=== PATIENT | male | born 1945 | race Caucasian/White ===

== ENCOUNTER 2019-07-05 09:14 | Outpatient (RCR) | payer MEDICARE, SELFPAY ==
[2019-07-05 09:23] VITALS: BMI 42.7
== END 2019-10-03 23:59 | disposition home or self-care (01) ==
LOC: ANHDMC 09:14
PROVIDERS: PCP Family Medicine; Visit Provider Family Medicine
DX: E11.65 Type 2 diabetes mellitus with hyperglycemia (principal); Z71.3 Dietary counseling and surveillance
CPT/HCPCS: 97802

== ENCOUNTER 2020-02-08 12:49 | Outpatient (CLI) | payer MEDICARE, SELFPAY ==
--- NOTE | 2020-02-08 16:49 | WPDSIXMINUTE ---
Six Minute Walk Six Minute Walk: DOS: 02/08/2020 REQUESTING: Dr. Calhoun REASON FOR TESTING: shortness of breath SIX MINUTE WALK This test was conducted per ATS guidelines. The patient wore a wrist oximeter however the signal was not easily displayed. The saturation and heart rate were recorded when the patient completed each lap. The initial saturation was 98% and the pulse was 69. No desaturation occurred with walking, pulse increased to 115. The distance walked was 1000 feet/304 meters completed without stopping to rest. IMPRESSION: No supplemental O2 indicated with exertion.
--- NOTE | 2020-02-08 17:10 | WPDPFTINT ---
PFT Interpretation PFT Interpretation: DOS: 02/08/2020 REQUESTING: Dr Calhoun REASON FOR TESTING: Shortness of breath PULMONARY FUNCTION TESTS The generator technician reported that the patient had good effort. Spirometry: FEV1 74%, mildly decreased, 2.04 L. FVC 69%. FEV1% is normal. No change with bronchodilator. Lung volumes: TLC 86%. RV 92%. Both values are normal. RV/TLC increased consistent with air trapping. Increased airway resistance. Diffusion: DLCO 72%mildly decreased. Flow volume loop: Decreased excursion of the inspiratory limb. IMPRESSION: Mild obstructive ventilatory impairment, mild air trapping, mild diffusion impairment without response to bronchodilator. Lack of response to bronchodilator should not preclude use if clinically indicated. Nicci Calhoun MD
== END 2020-02-08 12:50 | disposition home or self-care (01) ==
PROVIDERS: PCP Family Medicine; Visit Provider Internal Medicine Critical Care Medicine
DX: R06.02 Shortness of breath (principal); Z86.711 Personal history of pulmonary embolism; R94.2 Abnormal results of pulmonary function studies
CPT/HCPCS: 94060; 94618; 94726; 94729

== ENCOUNTER 2020-10-25 07:34 | Outpatient (CLI) | payer MEDICARE, SELFPAY ==
--- NOTE | ~2020-10-25 | NM_ITS ---
EXAMINATION: NM bone scan whole body DATE: 10/25/2020 13:32 INDICATION: Prostate cancer TECHNIQUE: 27.5 mCi Tc-99m HDP was administered intravenously. Delayed whole-body scintigrams were o btained. COMPARISON: CT abdomen and pelvis dated 10/25/2020 and chest dated 05/14/2019 FINDINGS: Likely degenerative joint centered uptake at the bilateral knees, feet and ankles. Symmetric mild inc reased uptake at the bilateral sternoclavicular articulations and anterior first ribs with associated costochondral calcifications on CT. Small focus of mildly increased uptake associated with prominent anterior endplate osteophytes at the right side of T12-L1. More subtle degenerative joint centered u ptake at the lower lumbar facet joints. No other foci of suspicious bone uptake to suggest metastatic disease. IMPRESSION: 1. No evident metastatic disease. Reviewed, dictated and finalized at location A.
--- NOTE | ~2020-10-25 | CT_ITS ---
EXAMINATION: CT abdomen pelvis w con EXAM DATE: 10/25/2020 08:34 INDICATION: Prostate cancer. TECHNIQUE: Spiral CT of the abdomen and pelvis was performed following intravenous injection of 100 m L Omnipaque 350. Axial, coronal and sagittal images of the abdomen and pelvis were reviewed. The do se-length product (DLP) for this examination was 1987.05 mGy-cm. The exposure was tailored according to patient size (auto mA exposure control), and iterative reconstruction (ASIR) was used as addition al dose reduction technique. There is no prior study for comparison. Correlation was made with CT pu lmonary scan 05/14/2019. FINDINGS: There are bilateral adrenal adenomas, largest on the right measuring 3.4 cm, not significan tly changed. There is left upper quadrant splenosis, the spleen itself is not identified and may hav e been surgically resected. There are laparotomy wires. Retroperitoneal and pelvic surgical clips. There is a right external iliac lymph node measuring 2.6 x 1.5 cm, the largest pelvic and retroperitoneal lymph node identified (see image 167). This is mildly enlarged, could be reactive but metastatic disease is also possible. Liver, pancreas are unremarkable. Gallbladder is unremarkable. No biliary obstruction. Homogeneous lesion in the midpole of the left kidney measuring 3 cm, could likely mildly cyst. There is no hydro nephrosis. The prostate is unremarkable. There is moderate size left-sided fat-containing inguinal h ernia. The bladder is unremarkable. There is mild to moderate scattered arteriosclerotic disease. Anterior left midline abdominal wall hernias including a large one containing nonobstructed transvers e colon, others containing fat. There are no findings to suggest appendicitis. The stomach and small bowel are unremarkable. There is expected amount of colonic stool. No free intraperitoneal gas. There is cardiomegaly and a moderate pericardial effusion, findings which were present on pulmonary CT 2018. No pleural effusions. Right lower lobe granuloma. No acute basilar airspace disease. Ther e are no osteoblastic or osteolytic lesions identified. IMPRESSION: 1. Single mildly enlarged right pelvic lymph node. Reactive versus metastatic disease. 2. Large supraumbilical hernias, one containing nonobstructed transverse colon. 3. Cardiomegaly and moderate pericardial effusion, chronic. 4. Adrenal adenomas. 5. Splenosis. 6. Surgical changes. Reviewed, dictated and finalized at location B. IMPRESSION: 1. Single mildly enlarged right pelvic lymph node. Reactive versus metastatic disease. 2. Large supraumbilical hernias, one containing nonobstructed transverse colon . 3. Cardiomegaly and moderate pericardial effusion, chronic. 4. Adrenal adenomas. 5. Splenosis. 6. Surgical changes.
[2020-10-25 13:02] LABS: Estimated Glomerular Filt Rate > 60
== END 2020-10-25 07:35 | disposition home or self-care (01) ==
PROVIDERS: PCP Family Medicine; Visit Provider Urology
DX: C61 Malignant neoplasm of prostate (principal); I51.7 Cardiomegaly; D35.00 Benign neoplasm of unspecified adrenal gland
CPT/HCPCS: 74177; 78306; A9561; Q9967

== ENCOUNTER 2020-12-11 08:21 | Outpatient (CLI) | payer MEDICARE, SELFPAY ==
--- NOTE | ~2020-12-11 | MR_ITS ---
EXAMINATION: MR pelvis wo/w con INDICATION: Prostate cancer TECHNIQUE: 3D Axial T2 Cube, Axial 2D FIESTA, Coronal SSFSE ARC, Axial and Coronal 2D FIESTA FatSat, Axial T2 FS, Axial SSFSE BH ARC, Axial 3D DualEcho BH, Axial SSFSE-IR David, Axial DWI b=600, pre and d ynamic postcontrast Axial LAVA ARC, WATER:POST Cor LAVA-FLEX COMPARISON: CT, 10/25/2020 CONTRAST: Multihance, 20 cc FINDINGS: Foci of T1 signal hyperintensity in the prostate on precontrast images likely reflect biops y change. There is an 8 mm area of cystic change in the left aspect of the prostate. No definite foca l prostate lesion is identified. There appears to be a spacer between the rectum and prostate. There is a stable, mildly enlarged right external iliac chain lymph node measuring 1.5 cm in short axis. Th ere are no dilated loops of bowel. No abnormal enhancement is present after contrast administration. There is a fat-containing left inguinal hernia. There is moderate lumbar spondylosis. IMPRESSION: 1. Right pelvic lymphadenopathy, reactive versus metastatic. Reviewed, dictated and finalized at location A.
[2020-12-11 09:12] LABS: Estimated Glomerular Filt Rate > 60
== END 2020-12-11 08:22 | disposition home or self-care (01) ==
PROVIDERS: PCP Family Medicine; Visit Provider Radiology Radiation Oncology
DX: C61 Malignant neoplasm of prostate (principal)
CPT/HCPCS: 72197; A9577

== ENCOUNTER 2022-01-28 11:12 | Outpatient (CLI) | payer MEDICARE, SELFPAY ==
[2022-01-28 19:29] LABS: Alanine Aminotransferase 11 U/L (6-50); Albumin Level 3.9 g/dL (3.5-5.1); Alkaline Phosphatase 64 U/L (38-126); Anion Gap 7 mmol/L (8-16); Aspartate Amino Transferase 26 U/L (17-59); Bilirubin,Total 0.7 mg/dL (0.2-1.3); Blood Urea Nitrogen 14 mg/dL (9-20); Calcium 9.3 mg/dL (8.4-10.2); Carbon Dioxide 30 mmol/L (22-30); Chloride 106 mmol/L (98-107); Estimated Glomerular Filt Rate > 60; Glucose 89 mg/dL (65-110); Potassium 4.4 mmol/L (3.4-5.0); Sodium 143 mmol/L (137-145)
== END 2022-01-28 11:13 | disposition home or self-care (01) ==
LOC: ANHGOSHLAB 11:13
PROVIDERS: PCP Family Medicine; Visit Provider Family Medicine
DX: E11.9 Type 2 diabetes mellitus without complications (principal); E55.9 Vitamin D deficiency, unspecified; I10 Essential (primary) hypertension
CPT/HCPCS: 36415; 80053; 82306; 83036

== ENCOUNTER → 2022-02-17 10:38 | Outpatient (CLI) | payer MEDICARE, SELFPAY ==
--- NOTE | ~2022-02-17 | DEXA_ITS ---
Bone Density Report Name: ETHAN CONNER Age: 76 Sex: Male Ethnicity: White Date of : 1945 Indication: screening for osteoporosis; height loss; cancer; Referring Provider: СЕРГЕЙ CALLEJAS Study: Bone densitometry was performed. Exam Date: February 17, 2022 Accession number: [id number] Bone Density: Region BMD T-score Z-score Classification AP Spine (L1, L2, L3) 1.200 1.2 2.3 Normal Femoral Neck (Left) 0.699 -1.7 -0.2 Osteopenia Total Hip (Left) 0.961 -0.5 0.5 Normal Femoral Neck (Right) 0.629 -2.2 -0.8 Osteopenia Total Hip (Right) 0.947 -0.6 0.4 Normal Total Hip Mean 0.954 -0.6 0.5 Normal World Health Organization criteria for BMD impression classify patients as: Normal (T-score at or above -1.0), Osteopenia (T-score between -1.0 and -2.5), or Osteoporosis (T-score at or below -2.5). 10-year Fracture Risk: FRAX not reported because: Treated for osteoporosis Clinical Information Provided by Patient: Is being treated for osteoporosis Has used the following medications: HRT (i.e. estrogen/hormone therapy), Vitamin D, Calcium Has the following medical conditions: Cancer, PROSTATE CANCER Patient maximum height was 70 No regular weight bearing exercise Drinks caffeinated beverages Impression: The patient has low bone mass, based on the Right Femoral Neck T-score. Discussion: It is important to ask patients whether they are taking their medications and to encourage continued and appropriate compliance with their osteoporosis therapies to reduce fracture risk. It is also important to review their risk factors and encourage appropriate calcium and vitamin D intakes, exercise, fall prevention and other lifestyle measures. Follow-Up: Consider repeating this study in 2 years to reassess this patient's status, or sooner if there is some new clinical indication. Reported by: [facility] on 02/17/2022 11:39:00 AM. Reviewed, dictated and finalized at location ARodriguez CAMPBELL
== END ==
PROVIDERS: PCP Family Medicine; Visit Provider Nurse Practitioner Adult Health
DX: M85.852 Other specified disorders of bone density and structure, left thigh (principal); M85.851 Other specified disorders of bone density and structure, right thigh
CPT/HCPCS: 77080

== ENCOUNTER 2022-08-14 08:15 | Outpatient (CLI) | payer MEDICARE, SELFPAY ==
[2022-08-14 20:28] LABS: Basophils Percent Auto 0.6 % (0.2-1.2); Eosinophils Absolute Auto 0.1 K/mm3 (0-0.3); Eosinophils Percent Auto 0.8 % (0-4.4); Hematocrit 43.9 % (42.0-52.0); Hemoglobin 14.2 g/dL (14.0-18.0); Immature Granulocyte Absolute 0.02 K/mm3 (0.00-0.031); Immature Granulocyte Percent A 0.3 % (0-0.5); Lymphocytes Percent Auto 27.6 % (18.3-44.2); Mean Corpuscular HGB Conc 32.3 g/dl (32-36); Mean Corpuscular Hemoglobin 32.7 pg (26-34); Mean Corpuscular Volume 101.2 fl (80-100); Mean Platelet Volume 12.1 fl (7.4-10.4); Monocytes Absolute Auto 0.8 K/mm3 (0.1-0.6); Monocytes Percent Auto 12.3 % (2.6-8.5); Neutrophils Absolute Auto 3.8 K/mm3 (1.3-6.7); Neutrophils Percent Auto 58.4 % (45.5-73.1); Platelet Count Result 180 k/mm3 (150-375); Red Blood Count 4.34 M/mm3 (4.6-6.20); Red Cell Distribution Width 16.1 % (11.5-14.5); White Blood Count 6.5 K/mm3 (4.5-10.0)
[2022-08-14 21:17] LABS: Creatinine Urine 91.1 mg/dL
[2022-08-14 21:37] LABS: MALB Creatinine Ratio 303.1 mg/g (0-30); Microalbumin Urine Random 276.1 mg/L (0-16.7)
[2022-08-14 21:40] LABS: Alanine Aminotransferase 14 U/L (6-50); Albumin Level 3.9 g/dL (3.5-5.1); Alkaline Phosphatase 65 U/L (38-126); Anion Gap 5 mmol/L (8-16); Aspartate Amino Transferase 42 U/L (17-59); Bilirubin,Total 0.8 mg/dL (0.2-1.3); Blood Urea Nitrogen 19 mg/dL (9-20); Calcium 9.2 mg/dL (8.4-10.2); Carbon Dioxide 28 mmol/L (22-30); Chloride 109 mmol/L (98-107); Cholesterol 146 mg/dL (0-200); Estimated Glomerular Filt Rate > 60; Glucose 82 mg/dL (65-110); HDL Direct 38 mg/dL; Potassium 4.4 mmol/L (3.4-5.0); Sodium 142 mmol/L (137-145); Triglycerides 73 mg/dL (<150)
[2022-08-14 21:48] LABS: LDL Cholesterol Direct 71 mg/dL
[2022-08-14 23:03] LABS: Hemoglobin A1C 6.4 % (<5.7)
[2022-08-15 03:48] LABS: Vitamin D 25 Hydroxy 15.9 ng/mL
== END 2022-08-14 08:16 | disposition home or self-care (01) ==
LOC: ANHGOSHLAB 08:17
PROVIDERS: PCP Family Medicine; Visit Provider Family Medicine
DX: I10 Essential (primary) hypertension (principal); E11.9 Type 2 diabetes mellitus without complications; E78.5 Hyperlipidemia, unspecified; E53.8 Deficiency of other specified B group vitamins; I50.33 Acute on chronic diastolic (congestive) heart failure; E55.9 Vitamin D deficiency, unspecified
CPT/HCPCS: 36415; 80053; 80061; 82043; 82306; 82607; 83036; 84443; 85025

== ENCOUNTER 2023-01-28 14:44 | Inpatient (IN) | payer MEDICARE, SELFPAY ==
[2023-01-28] VITALS (11 sets, daily range): BP systolic 108–143; BP diastolic 55–82; PULSE 88–112; RESP 20–32; TEMP 36.4–36.9; O2SAT 94–98
--- NOTE | ~2023-01-28 | XR_ITS ---
EXAMINATION: XR chest 1V portable Exam Date/Time: 01/28/2023 16:55 CDT HISTORY: sepsis, tachypnea Comparison: 05/13/2019. RESULT: Lines, tubes, and devices: None. Lungs and pleura: The patient is rotated towards the right. Senescent changes in the lungs. Prominen t vessels. Left basilar scar/atelectasis. Cardiomediastinal silhouette: Stable cardiomegaly. Other: No acute osseous or upper abdominal finding. IMPRESSION: No acute cardiopulmonary process. Reviewed, dictated and finalized at location K.
--- NOTE | ~2023-01-28 | XR_ITS ---
EXAMINATION: XR chest 1V portable DATE: 01/29/2023 13:40 INDICATION: Shortness of breath TECHNIQUE: frontal view of the chest was obtained. COMPARISON: Chest radiograph dated 02/07/2023 FINDINGS: Unchanged linear discoid atelectasis/scarring at the left midlung zone. Prominent cardiomegaly with p ulmonary vascular congestion. Mild increased interstitial pattern with peribronchial cuffing consiste nt with mild pulmonary edema. No pleural effusion or pneumothorax. IMPRESSION: 1. Congestive heart failure with cardiomegaly and mild pulmonary edema. Reviewed, dictated and finalized at location L.
--- NOTE | ~2023-01-28 | XR_ITS ---
Portable chest x-ray Comparison: 01/29/2023 Clinical History: Shortness of breath Findings: There is probable minimal pulmonary edema pattern. No definite pleural effusion or pneumot horax. Cardiomediastinal silhouette is stable. Bones and soft tissues are unremarkable. Impression: Minimal pulmonary edema pattern. Reviewed, dictated and finalized at [facility]. Impression: Minimal pulmonary edema pattern.
--- NOTE | ~2023-01-28 | CT_ITS ---
EXAMINATION: CT abdomen pelvis w con DATE: 01/28/2023 16:28 INDICATION: llq pain, NVD, UTI, sepsis. History of prostate cancer TECHNIQUE: Computed tomography (CT) of the abdomen and pelvis was performed with 100 mL Omnipaque-350 intravenous contrast. Automated exposure control and iterative reconstruction technique were employe d. The dose-length product was 1576.16 mGy-cm. COMPARISON: 10/25/2020. FINDINGS: Lower thorax: Bibasilar mild scar/atelectasis. Calcified right lower lobe granuloma. Pericardial effu collin. Cardiomegaly. Coronary artery calcifications. Liver: Normal. Biliary/Gallbladder: Gallbladder is normal. No bile duct dilation. Pancreas: Atrophy. Spleen: The kaw spleen is absent. Right upper quadrant splenosis. Adrenals:Bilateral adrenal adenomas. Kidneys: Stable right renal proteinaceous or hemorrhagic cysts. Subcentimeter right upper pole hypode nsities, too small to characterize. GI tract: No small or large bowel dilation. Appendix not identified, presumably surgically absent. Di verticulosis without diverticulitis. Mesentery/Peritoneum: No ascites, mass, or free air. Retroperitoneum: No mass. Atherosclerotic abdominal aortic and/or arterial calcifications. Retroperit eller surgical clips. Pelvis: Pelvic surgical clips. The urinary bladder is mostly decompressed with chronic fatty infiltra tion and mild inflammatory change. Surgically absent prostate. Soft Tissues: Multiple ventral hernias containing both mesenteric fat and unobstructed large bowel. U ncomplicated fat-containing left inguinal hernia. Stranding in the left inguinal subcutaneous fat. En larged bilateral inguinal lymph nodes. Bones: No acute osseous finding. IMPRESSION: Cardiomegaly. Stable moderate pericardial effusion. Inflammatory changes in the left inguinal subcutaneous fat. Bilateral inguinal lymphadenopathy, great er on the left slightly worse than the prior study. Correlate for findings of left lower extremity in fection. Metastasis not excluded. Bladder wall inflammation may reflect cystitis in the appropriate clinical context, possibly chronic. Reviewed, dictated and finalized at location K. IMPRESSION: Cardiomegaly. Stable moderate pericardial effusion. Inflammatory changes in the left inguinal subcutaneous fat. Bilateral inguinal lymphadenopathy, greater on the left slightly worse than the prior study. Corre late for findings of left lower extremity infection. Metastasis not excluded. Bladder wall inflammation may reflect cystitis in the appropriate clinical cont ext, possibly chronic.
--- NOTE | ~2023-01-28 | US_ITS ---
EXAMINATION: US renal BI DATE: 01/29/2023 16:22 INDICATION: Acute kidney injury. TECHNIQUE: Multiple ultrasound grayscale images of the kidneys were obtained. COMPARISON: CT abdomen and pelvis 01/28/2023 FINDINGS: The right kidney measures 9.9 x 6.1 x 5.9 cm. The left kidney measures 11.3 x 6.7 x 5.7 cm. The kidne ys demonstrate normal parenchymal echogenicity. There is a 3.3 cm cyst in left kidney. There is no hy dronephrosis. The bladder is decompressed by a Baker catheter. IMPRESSION: 1. Normal kidney sizes. No hydronephrosis. Reviewed, dictated and finalized at location A.
--- NOTE | 2023-01-28 15:00 | ECG_ITS ---
Measurements Intervals [place] Rate: 100 P: TX: 0 QRS: -33 QRSD: 146 T: 98 QT: 362 QTc: 468 Interpretive Statements ATRIAL FIBRILLATION WITH RAPID VENTRICULAR RESPONSE MARKED LEFT AXIS DEVIATION [QRS AXIS < -30] LEFT BUNDLE BRANCH BLOCK [120+ ms QRS DURATION, 80+ ms Q/S IN V1/V2, 85+ ms R IN I/aVL/V5/V6] ABNORMAL ECG COMPARED TO ECG 05/11/2019 11:35:35 NO SIGNIFICANT CHANGES Electronically Signed On 01-28-2023 15:32:51 CDT by Jayson Hoang M.D.
--- NOTE | 2023-01-28 15:03 | ECG_ITS ---
Measurements Intervals [place] Rate: 111 P: VT: 0 QRS: -40 QRSD: 147 T: 122 QT: 341 QTc: 464 Interpretive Statements ATRIAL FIBRILLATION WITH RAPID VENTRICULAR RESPONSE MARKED LEFT AXIS DEVIATION [QRS AXIS < -30] LEFT BUNDLE BRANCH BLOCK [120+ ms QRS DURATION, 80+ ms Q/S IN V1/V2, 85+ ms R IN I/aVL/V5/V6] COMPARED TO ECG 01/28/2023 14:51:30 NO SIGNIFICANT CHANGES Electronically Signed On 01-29-2023 8:55:50 CDT by Dilshad Calderon M.D.
[2023-01-28 15:05] LABS: Hematocrit 38.1 % (42.0-52.0); Hemoglobin 12.7 g/dL (14.0-18.0); Mean Corpuscular HGB Conc 33.3 g/dl (32-36); Mean Corpuscular Hemoglobin 33.5 pg (26-34); Mean Corpuscular Volume 100.5 fl (80-100); Mean Platelet Volume 11.5 fl (7.4-10.4); Platelet Count Result 164 k/mm3 (150-375); Red Blood Count 3.79 M/mm3 (4.6-6.20); Red Cell Distribution Width 15.9 % (11.5-14.5); White Blood Count 26.3 K/mm3 (4.5-10.0)
[2023-01-28 15:15] LABS: Albumin Level 3.2 g/dL (3.5-5.1); Alkaline Phosphatase 47 U/L (38-126); Anion Gap 8 mmol/L (8-16); Aspartate Amino Transferase 29 U/L (17-59); Bilirubin,Total 1.6 mg/dL (0.2-1.3); Blood Urea Nitrogen 21 mg/dL (9-20); Calcium 9.1 mg/dL (8.4-10.2); Carbon Dioxide 21 mmol/L (22-30); Chloride 106 mmol/L (98-107); Estimated CRCL calculation 46 ml/min; Estimated Glomerular Filt Rate 39; Glucose 159 mg/dL (65-110); Lipase 16 U/L (23-300); Sodium 135 mmol/L (137-145)
[2023-01-28 15:23] LABS: Alanine Aminotransferase 35 U/L (6-50)
[2023-01-28 15:30] LABS: Band Neutrophils Percent 12 % (0-6); Lymphocytes Absolute Manual 1.57 K/mm3 (1.1-4.5); Monocytes Absolute Manual 0.26 K/mm3 (0.1-0.90); Monocytes Percent Manual 1 % (3-9); Neutrophils Absolute Manual 24.45 K/mm3 (1.3-6.7); Neutrophils Percent Manual 81 % (46-73); Platelet Estimate Adequate (Adequate); Total Cells Counted 100
[2023-01-28 15:31] LABS: Schistocytes None Seen (NORMAL)
[2023-01-28 15:32] LABS: Anisocytosis 2+ (NORMAL)
[2023-01-28 15:42] LABS: Bacteria Urine 4+ /hpf; Need Manual Microscopic Reviewed; Non Pathogenic Casts >20; RBC Urine 51-100 /hpf (0-2); Squamous Epithelial Cell Urine Many /hpf (Few); WBC Urine >100 /hpf
[2023-01-28 15:47] LABS: Appearance Urine Cloudy (Clear); Bilirubin Urine 2+ (Negative); Blood Urine Negative (Negative); Color Urine Yellow (Yellow); Glucose Urine UA Negative (Negative); Ketones Urine 1+ mg/dL (Negative); Leukocyte Esterase Ur 3+ LEU/UL (Negative); Nitrate Urine Positive (Negative); Protein Urine 3+ mg/dL (Negative)
[2023-01-28 15:48] LABS: Add Urine Microscopic? YES
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
--- NOTE | 2023-01-28 16:21 | PC.NURSE ---
Pt to CT scan via stretcher at this time.
[2023-01-28] MEDS: SODIUM CHLORIDE 0.9% IV 1,000 ML 999 ML IV CONT (16:39)
--- NOTE | 2023-01-28 16:53 | PC.NURSE ---
Called laboratory and requested add on for BNP.
[2023-01-28 17:10] LABS: Lactic Acid Reflex 4.5 mmol/L (0.7-2.0)
[2023-01-28 17:13] LABS: NT Pro B Type Natriuretic Pept 13600 pg/mL (19.9-100); Troponin I 0.018 ng/mL (0.000-0.034)
--- NOTE | 2023-01-28 18:12 | ADMGEN ---
This patient, Serg Neri, was admitted to IMU Room 201-01 on 01/28/23 at 1753. Patient/family oriented to hospital policies and general routines including ID bracelet, bed and alarms, visiting hours, pain management, procedures, bathroom and other care routines, personal items, smoking policy, room service/diet, and visiting hours. Information on how to activate the Rapid Response Team has been discussed. Patient/Family are encouraged to report perceived risks to care and to ask questions if they do not understand what they are told or what they should do.
--- NOTE | 2023-01-28 19:17 | PM.IMHP ---
H&P: HPI History of Present Illness Date/Time: 01/28/23 19:17 Chief Complaint: Fall Narrative: This is 77 yo male with past medical history significant for systolic and diastolic heart failure, ejection fraction calculated at 30 %, atrial fibrillation, on anticoagulation, rate control, insulin-dependent diabetes mellitus, morbid obesity, chronic bilateral lower extremity lymphedema, obstructive sleep apnea on CPAP at nighttime. patient comes to the emergency room via EMS after he fell while trying to get out of his bed and was not able to get back up, the night before had nausea and vomiting has had generalized weakness, chills, poor appetite, no abdominal pain, no pain or burning with urination, no cough, no sputum production, no loss of consciousness. preliminary workup was significant for a lactic acid of 4.5, urinalysis with numerous WBCs present, creatinine 1.7, CBC leukocyte count 26,000, brain natriuretic peptide 13,400. a CT of abdomen and pelvis was reported as. EXAMINATION: CT abdomen pelvis w con DATE: 01/28/2023 16:28 INDICATION: llq pain, NVD, UTI, sepsis. History of prostate cancer TECHNIQUE: Computed tomography (CT) of the abdomen and pelvis was performed with 100 mL Omnipaque-350 intravenous contrast. Automated exposure control and iterative reconstruction technique were employed. The dose-length product was 1576.16 mGy-cm. COMPARISON: 10/25/2020. FINDINGS: Lower thorax: Bibasilar mild scar/atelectasis. Calcified right lower lobe granuloma. Pericardial effusion. Cardiomegaly. Coronary artery calcifications. Liver: Normal.? Biliary/Gallbladder: Gallbladder is normal. No bile duct dilation. Pancreas: Atrophy. Spleen: The quechan spleen is absent. Right upper quadrant splenosis. Adrenals:Bilateral adrenal adenomas. Kidneys: Stable right renal proteinaceous or hemorrhagic cysts. Subcentimeter right upper pole hypodensities, too small to characterize. GI tract: No small or large bowel dilation. Appendix not identified, presumably surgically absent. Diverticulosis without diverticulitis. Mesentery/Peritoneum: No ascites, mass, or free air. Retroperitoneum: No mass. Atherosclerotic abdominal aortic and/or arterial calcifications. Retroperitoneal surgical clips. Pelvis: Pelvic surgical clips. The urinary bladder is mostly decompressed with chronic fatty infiltration and mild inflammatory change. Surgically absent prostate. Soft Tissues: Multiple ventral hernias containing both mesenteric fat and unobstructed large bowel. Uncomplicated fat-containing left inguinal hernia. Stranding in the left inguinal subcutaneous fat. Enlarged bilateral inguinal lymph nodes. Bones:? No acute osseous finding. IMPRESSION: Cardiomegaly. Stable moderate pericardial effusion. Inflammatory changes in the left inguinal subcutaneous fat. Bilateral inguinal lymphadenopathy, greater on the left slightly worse than the prior study. Correlate for findings of left lower extremity infection. Metastasis not excluded. Bladder wall inflammation may reflect cystitis in the appropriate clinical context, possibly chronic. EXAMINATION:? XR chest 1V portable Exam Date/Time:? 01/28/2023 16:55 CDT HISTORY: sepsis, tachypnea ? Comparison:? 05/13/2019. RESULT: Lines, tubes, and devices:? None. Lungs and pleura:? The patient is rotated towards the right. Senescent changes in the lungs. Prominent vessels. Left basilar scar/atelectasis. Cardiomediastinal silhouette:? Stable cardiomegaly. Other:? No acute osseous or upper abdominal finding. ? IMPRESSION: No acute cardiopulmonary process. Review of Systems Review of Systems: fall ,generalized weakness Constitutional: Constitutional: Reports chills, Reports fatigue, Denies night sweats, Reports poor appetite and Reports weakness Eyes: Eyes: Denies change in vision ENT: Denies dysphagia, Denies nasal congestion and Denies odynophagia Cardiovascular: Cardiovascular: Denies chest pain, Reports leg edema,
[2023-01-28 19:32] LABS: Glucose Point of Care 158 mg/dl (65-105)
[2023-01-28 19:48] LABS: Reflex Lactic Acid Yes or No Add Lactic
[2023-01-28 20:31] LABS: Lactic Acid 4.9 mmol/L (0.7-2.0)
[2023-01-28 21:06] LABS: Alveolar/Arterial O2 Gradient 49.3 mmHg; Base Excess ABG -4.8 mEq/l (+/-2.0); Carboxyhemoglobin 0.3 % THb (0-2.0); Fractional Inspired Oxygen 21 %; HCO3 ABG 17.6 mEq/l (22.0-26.0); Methemoglobin ABG 0.3 %THb (0-1.5); Oxygen Content ABG 17.7 %vol (16.0-22.0); Oxyhemoglobin 93.7 % THb (90.0-100.0); PCO2 ABG 25.9 mmHg (35.0-45.0); PO2 ABG 69.4 mmHg (80.0-100.0); Reduced Hemoglobin 5.7 %THb (0-5.0); Total Hemoglobin 13.4 g/dL (12.0-18.0); pH ABG 7.449 (7.350-7.450)
[2023-01-28 21:07] LABS: Device ROOM AIR; Modified Allen's Test Pass; Site Drawn RIGHT RADIAL
[2023-01-28] MEDS: APIXABAN 5 MG TABLET PO (22:36)
[2023-01-28] MEDS: ONDANSETRON INJ 4 MG/2 ML VIAL IV PUSH (22:45)
[2023-01-29] VITALS (17 sets, daily range): BP systolic 106–129; BP diastolic 57–77; PULSE 96–125; RESP 20–24; TEMP 36.1–37.1; O2SAT 93–98
--- NOTE | 2023-01-29 | ECHO_ITS ---
Patient Info Name: Serg Neri Age: 77 years : 1945 Gender: Male Ht: 72 in Wt: 324 lbs BSA: 2.80 m2 HR: 96 bpm BP: 129 / 65 mmHg Heart Rhythm: Indeterminant Technical Quality: Fair Exam Date: 01/29/2023 8:51 AM Exam Location: [facility] Card Pulmonary Patient Status: Inpatient Admit Date: 01/28/2023 Staff Ordering Physician: Jimena Shaikh MD City Treasurer: Heather Vyas RDCS Attending Provider: Santiago Busch MD Referring Physician: Neel HARDWICK; Exam Type: CA echo dop color flow w con Study Info Indications - CHF Complete two-dimensional, color flow and Doppler transthoracic echocardiogram is performed with contrast to opacify the left ventricle and to improve the deliniation of the left ventricle endocardial borders. Summary 1. Left ventricular chamber dimension is severely enlarged. 2. Left ventricular systolic function is severely reduced, estimated at 30-35%. 3. There is moderately increased left ventricular wall thickness. 4. The left ventricular diastolic function is abnormal. 5. Left atrial chamber dimension is severely enlarged. 6. Right atrial chamber dimension is severely enlarged. 7. There is mild aortic valve regurgitation. 8. There is mild aortic valve calcification. 9. The mitral valve annulus is moderately calcified. 10. The mitral valve has thickened leaflets. 11. There is mild tricuspid valve regurgitation. 12. There is small pericardial effusion. Left Ventricle Left ventricular chamber dimension is severely enlarged. Left ventricular systolic function is severely reduced, estimated at 30-35%. There is moderately increased left ventricular wall thickness. The left ventricular diastolic function is abnormal. Right Ventricle Right ventricular chamber dimension is normal. Right ventricular systolic function is normal. Left Atria Left atrial chamber dimension is severely enlarged. Right Atria Right atrial chamber dimension is severely enlarged. Atrial Septum Intact interatrial septum visualized by color flow imaging. Aortic Valve The aortic valve is trileaflet. There is no aortic valve stenosis. There is mild aortic valve regurgitation. There is mild aortic valve calcification. Pulmonic Valve The pulmonic valve is normal. There is no pulmonic valve stenosis. There is trace pulmonic regurgitation. Mitral Valve The mitral valve has thickened leaflets. There is no mitral valve stenosis. There is trace mitral valve regurgitation. The mitral valve annulus is moderately calcified. Tricuspid Valve The tricuspid valve leaflets are normal. There is no significant tricuspid valve stenosis. There is mild tricuspid valve regurgitation. No pulmonary hypertension, estimated pulmonary arterial systolic pressure is 27 mmHg. Pericardium/Pleural The pericardium appears normal. There is small pericardial effusion. Inferior Vena Cava Not well visualized inferior vena cava with >50% collapse upon inspiration consistent with elevated right atrial pressure, 10 mmHg. Aorta The aortic root size at the sinus of Valsalva is normal. Left Ventricular Outflow Tract Name Value Normal LVOT Doppler LVOT Peak Gradient 4 mmHg LVOT Mean Gradient 2 mmHg LVOT VTI 17.25 cm
[2023-01-29] MEDS: PIPERACILLN/TAZ 3.375GM/NS50ML 3.375 GM/50 ML BAG IVPB ×3 (00:34→13:57)
[2023-01-29] MEDS: VANCOMYCIN 1,250 MG/NS 250 ML 1,250 MG/250 ML BAG 166.67 MG IVPB ×2 (01:18→02:54)
[2023-01-29 07:58] LABS: Glucose Point of Care 194 mg/dl (65-105)
[2023-01-29] MEDS: PERFLUTREN LIPID MICROSPHERES 1.5 ML VIAL DILUTED TO 10 ML TOTAL VOLUME IV PUSH (09:15)
[2023-01-29] MEDS: APIXABAN 5 MG TABLET PO ×2 (10:31→20:06)
[2023-01-29] MEDS: INSULIN HUMAN NPH (*BKC) 100 UNITS/ML 20 UNITS SUB-Q ×2 (10:33→17:08)
[2023-01-29 11:26] LABS: Glucose Point of Care 194 mg/dl (65-105)
--- NOTE | 2023-01-29 11:59 | PM.IMPN ---
Progress Note: A&P Assessment and Plan (1) Severe sepsis: Code(s): A41.9 - Sepsis, unspecified organism; R65.20 - Severe sepsis without septic shock Status: Acute Assessment and Plan: admit to IMU early goal-directed therapy in progress received ceftriaxone in the emergency room switched to Zosyn and vanc await cultures supportive care continue to monitor (2) UTI (urinary tract infection): Qualifiers: Hematuria presence: with hematuria Urinary tract infection type: acute cystitis Qualified Code(s): N30.01 - Acute cystitis with hematuria Code(s): N39.0 - Urinary tract infection, site not specified Status: Acute Assessment and Plan: initially received Rocephin currently on vancomycin and Zosyn (3) Acute kidney injury: Code(s): N17.9 - Acute kidney failure, unspecified Status: Acute Assessment and Plan: holding Entresto gentle hydration continue to monitor BUN and creatinine Strict intake and output daily (4) Nausea and vomiting: Qualifiers: Vomiting type: unspecified Qualified Code(s): R11.2 - Nausea with vomiting, unspecified Code(s): R11.2 - Nausea with vomiting, unspecified Status: Acute Assessment and Plan: likely secondary to above supportive care (5) Lactic acidosis: Code(s): E87.20 - Acidosis, unspecified Status: Acute Assessment and Plan: secondary to sepsis continue to monitor (6) COPD (chronic obstructive pulmonary disease): Qualifiers: COPD type: unspecified COPD Qualified Code(s): J44.9 - Chronic obstructive pulmonary disease, unspecified Code(s): J44.9 - Chronic obstructive pulmonary disease, unspecified Status: Acute Assessment and Plan: not actively wheezing (7) Lymphedema of both lower extremities: Code(s): I89.0 - Lymphedema, not elsewhere classified Status: Acute Assessment and Plan: compression stockings (8) Incisional hernia: Qualifiers: Obstruction and gangrene presence: without obstruction or gangrene Qualified Code(s): K43.2 - Incisional hernia without obstruction or gangrene Code(s): K43.2 - Incisional hernia without obstruction or gangrene Status: Acute Assessment and Plan: unchanged (9) Afib: Qualifiers: Atrial fibrillation type: paroxysmal Qualified Code(s): I48.0 - Paroxysmal atrial fibrillation Code(s): I48.91 - Unspecified atrial fibrillation Status: Acute Assessment and Plan: unchanged rate controlled and anticoagulated (10) Moderate to severe pulmonary hypertension: Code(s): I27.20 - Pulmonary hypertension, unspecified Status: Acute Assessment and Plan: on CPAP at nighttime (11) Sleep apnea: Qualifiers: Sleep apnea type: unspecified type Qualified Code(s): G47.30 - Sleep apnea, unspecified Code(s): G47.30 - Sleep apnea, unspecified Status: Acute Assessment and Plan: on CPAP at nighttime (12) CHF (congestive heart failure): Code(s): I50.9 - Heart failure, unspecified Status: Acute Assessment and Plan: ejection fraction calculated at 30% repeat echocardiogram in a.m. Strict intake and output daily gentle diuresis as needed however patient is tenuous continue to monitor Subjective Date/time seen: 01/29/23 11:59 Interval history: no new complaints Exam Narrative: patient is laying in bed Const: General: comfortable, no acute distress, well developed, alert, awake, ill appearing chronically and obese ( morbid) Nutritional Appearance: obese ( morbid) morbidly obese Orientation/consciousness: patient oriented x3 HENMT: Head: normal to inspection, normocephalic and atraumatic Ears: hearing grossly normal bilaterally Face/Nose/Sinus: normal facial exam Face and sinus: normal facial exam Eyes: General: appearance n
[2023-01-29] MEDS: SODIUM CHLORIDE 0.9% IV 1,000 ML 50 ML IV CONT (13:57)
[2023-01-29 15:02] LABS: Lactic Acid Reflex 2.4 mmol/L (0.7-2.0)
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
[2023-01-29 17:01] LABS: Glucose Point of Care 195 mg/dl (65-105)
[2023-01-29] MEDS: FUROSEMIDE INJ 40 MG/4 ML VIAL IV PUSH (17:08)
[2023-01-29 17:51] LABS: Reflex Lactic Acid Yes or No Add Lactic
[2023-01-29 18:38] LABS: Lactic Acid 2.5 mmol/L (0.7-2.0)
[2023-01-29 18:51] LABS: Anion Gap 8 mmol/L (8-16); Blood Urea Nitrogen 42 mg/dL (9-20); Calcium 8.6 mg/dL (8.4-10.2); Carbon Dioxide 21 mmol/L (22-30); Chloride 106 mmol/L (98-107); Estimated CRCL calculation 44 ml/min; Estimated Glomerular Filt Rate 37; Glucose 223 mg/dL (65-110); Potassium 4.5 mmol/L (3.4-5.0); Sodium 135 mmol/L (137-145)
[2023-01-29 19:00] LABS: NT Pro B Type Natriuretic Pept 17200 pg/mL (19.9-100)
[2023-01-29] MEDS: SACUBITRIL/VALSARTAN 97-103 MG TABLET 1 TAB PO (20:06)
[2023-01-29] MEDS: carvediloL 25 MG TABLET PO (20:07)
[2023-01-29 23:13] LABS: Glucose Point of Care 213 mg/dl (65-105)
[2023-01-30] VITALS (19 sets, daily range): BP systolic 100–120; BP diastolic 50–75; PULSE 85–115; RESP 20–24; TEMP 36–37.4; O2SAT 95–100
[2023-01-30 04:46] LABS: Hematocrit 35.4 % (42.0-52.0); Hemoglobin 12.1 g/dL (14.0-18.0); Mean Corpuscular HGB Conc 34.2 g/dl (32-36); Mean Corpuscular Hemoglobin 33.4 pg (26-34); Mean Corpuscular Volume 97.8 fl (80-100); Mean Platelet Volume 11.9 fl (7.4-10.4); Platelet Count Result 114 k/mm3 (150-375); Red Blood Count 3.62 M/mm3 (4.6-6.20); Red Cell Distribution Width 16.3 % (11.5-14.5)
[2023-01-30 05:01] LABS: Anion Gap 4 mmol/L (8-16); Blood Urea Nitrogen 46 mg/dL (9-20); Calcium 8.5 mg/dL (8.4-10.2); Carbon Dioxide 23 mmol/L (22-30); Chloride 104 mmol/L (98-107); Estimated CRCL calculation 44 ml/min; Estimated Glomerular Filt Rate 37; Glucose 215 mg/dL (65-110); Sodium 131 mmol/L (137-145)
[2023-01-30 05:07] LABS: NT Pro B Type Natriuretic Pept 15900 pg/mL (19.9-100)
[2023-01-30 06:43] LABS: Band Neutrophils Percent 31 % (0-6); Lymphocytes Absolute Manual 0.96 K/mm3 (1.1-4.5); Monocytes Absolute Manual 0.32 K/mm3 (0.1-0.90); Monocytes Percent Manual 1 % (3-9); Neutrophils Absolute Manual 30.72 K/mm3 (1.3-6.7); Neutrophils Percent Manual 65 % (46-73); Total Cells Counted 100
[2023-01-30 06:44] LABS: Anisocytosis 1+ (NORMAL); Crenated RBC 2+ (NORMAL); Schistocytes None Seen (NORMAL)
[2023-01-30 07:53] LABS: Glucose Point of Care 183 mg/dl (65-105)
[2023-01-30] MEDS: SACUBITRIL/VALSARTAN 97-103 MG TABLET 1 TAB PO ×2 (09:09→20:04)
[2023-01-30] MEDS: FUROSEMIDE INJ 40 MG/4 ML VIAL IV PUSH (09:09)
[2023-01-30] MEDS: carvediloL 25 MG TABLET PO ×2 (09:09→20:03)
[2023-01-30] MEDS: INSULIN HUMAN NPH (*BKC) 100 UNITS/ML 20 UNITS SUB-Q ×2 (09:10→16:25)
[2023-01-30] MEDS: APIXABAN 5 MG TABLET PO ×2 (09:10→20:03)
--- NOTE | 2023-01-30 09:29 | P.CDI_ITS ---
CDI Query Clarification Request Documented history of CHF. CHF noted in the assessment and plan. Elevated BNP on 01/28, 01/29 & 01/30 lab work. Pulmonary edema noted on the 01/29 & 01/30 chest xray. Lasix and Entresto listed as home medications. Patient receiving Entresto and Lasix IV BID. Please specify type and acuity of heart failure if known. * Acute * Chronic * Acute on Chronic * Unknown * Systolic * Diastolic * Combined Systolic and Diastolic * Unknown <Laquita Breaux RN - Last Filed: 01/30/23 09:33> Provider Comments acute on chronic systolic <Art Herbert MD - Last Filed: 01/31/23 14:31>
[2023-01-30] MEDS: metroNIDAZOLE 500 MG/ISO 100ML 500 MG/100 ML BAG 100 MG IVPB ×2 (09:44→17:03)
[2023-01-30 11:29] LABS: Glucose Point of Care 210 mg/dl (65-105)
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
--- NOTE | 2023-01-30 14:20 | PM.IMPN ---
Progress Note: A&P Assessment and Plan (1) Severe sepsis: Code(s): A41.9 - Sepsis, unspecified organism; R65.20 - Severe sepsis without septic shock Status: Acute Assessment and Plan: admit to IMU charlie faulkner flagyl (added bc of increase wbc) wbc increased today feels somewhat better switched to Zosyn and vanc await cultures supportive care continue to monitor (2) UTI (urinary tract infection): Qualifiers: Hematuria presence: with hematuria Urinary tract infection type: acute cystitis Qualified Code(s): N30.01 - Acute cystitis with hematuria Code(s): N39.0 - Urinary tract infection, site not specified Status: Acute Assessment and Plan: iv abx (3) Acute kidney injury: Code(s): N17.9 - Acute kidney failure, unspecified Status: Acute Assessment and Plan: holding Entresto gentle hydration continue to monitor BUN and creatinine Strict intake and output daily (4) Nausea and vomiting: Qualifiers: Vomiting type: unspecified Qualified Code(s): R11.2 - Nausea with vomiting, unspecified Code(s): R11.2 - Nausea with vomiting, unspecified Status: Acute Assessment and Plan: likely secondary to above supportive care (5) Lactic acidosis: Code(s): E87.20 - Acidosis, unspecified Status: Acute Assessment and Plan: secondary to sepsis continue to monitor (6) COPD (chronic obstructive pulmonary disease): Qualifiers: COPD type: unspecified COPD Qualified Code(s): J44.9 - Chronic obstructive pulmonary disease, unspecified Code(s): J44.9 - Chronic obstructive pulmonary disease, unspecified Status: Acute Assessment and Plan: not actively wheezing (7) Lymphedema of both lower extremities: Code(s): I89.0 - Lymphedema, not elsewhere classified Status: Acute Assessment and Plan: compression stockings (8) Incisional hernia: Qualifiers: Obstruction and gangrene presence: without obstruction or gangrene Qualified Code(s): K43.2 - Incisional hernia without obstruction or gangrene Code(s): K43.2 - Incisional hernia without obstruction or gangrene Status: Acute Assessment and Plan: unchanged (9) Afib: Qualifiers: Atrial fibrillation type: paroxysmal Qualified Code(s): I48.0 - Paroxysmal atrial fibrillation Code(s): I48.91 - Unspecified atrial fibrillation Status: Acute Assessment and Plan: unchanged rate controlled and anticoagulated (10) Moderate to severe pulmonary hypertension: Code(s): I27.20 - Pulmonary hypertension, unspecified Status: Acute Assessment and Plan: on CPAP at nighttime (11) Sleep apnea: Qualifiers: Sleep apnea type: unspecified type Qualified Code(s): G47.30 - Sleep apnea, unspecified Code(s): G47.30 - Sleep apnea, unspecified Status: Acute Assessment and Plan: on CPAP at nighttime (12) CHF (congestive heart failure): Code(s): I50.9 - Heart failure, unspecified Status: Acute Assessment and Plan: ejection fraction calculated at 30% repeat echocardiogram in a.m. Strict intake and output daily gentle diuresis as needed however patient is tenuous continue to monitor Subjective Date/time seen: 01/30/23 14:20 Interval history: no new complaints Exam Narrative: patient is laying in bed Const: General: comfortable, no acute distress, well developed, alert, awake, ill appearing chronically and obese ( morbid) Nutritional Appearance: obese ( morbid) morbidly obese Orientation/consciousness: patient oriented x3 HENMT: Head: normal to inspection, normocephalic and atraumatic Ears: hearing grossly normal bilaterally Face/Nose/Sinus: normal facial exam Face and sinus: normal facial exam Eyes: General: appearance normal, both eyes and all related structures Pupil
[2023-01-30 15:11] LABS: Anion Gap 3 mmol/L (8-16); Blood Urea Nitrogen 47 mg/dL (9-20); Calcium 8.5 mg/dL (8.4-10.2); Carbon Dioxide 23 mmol/L (22-30); Chloride 103 mmol/L (98-107); Estimated CRCL calculation 49 ml/min; Estimated Glomerular Filt Rate 42; Glucose 195 mg/dL (65-110); Potassium 4.1 mmol/L (3.4-5.0); Sodium 129 mmol/L (137-145)
[2023-01-30 15:55] LABS: Glucose Point of Care 178 mg/dl (65-105)
[2023-01-30 20:00] LABS: Glucose Point of Care 184 mg/dl (65-105)
[2023-01-31] VITALS (17 sets, daily range): BP systolic 106–112; BP diastolic 55–77; PULSE 78–100; RESP 20–22; TEMP 36.4–36.8; O2SAT 94–99
[2023-01-31 01:52] LABS: Vancomycin Trough 11.1 ug/mL (10.0-20.0)
[2023-01-31] MEDS: metroNIDAZOLE 500 MG/ISO 100ML 500 MG/100 ML BAG 100 MG IVPB ×3 (02:40→17:17)
[2023-01-31 04:39] LABS: Hematocrit 35.4 % (42.0-52.0); Hemoglobin 11.8 g/dL (14.0-18.0); Immature Platelet Fraction Pct 12.4 % (0.9-11.2); Mean Corpuscular HGB Conc 33.3 g/dl (32-36); Mean Corpuscular Hemoglobin 33.1 pg (26-34); Mean Corpuscular Volume 99.2 fl (80-100); Mean Platelet Volume 11.9 fl (7.4-10.4); Platelet Count Result 103 k/mm3 (150-375); Red Blood Count 3.57 M/mm3 (4.6-6.20); Red Cell Distribution Width 15.8 % (11.5-14.5)
[2023-01-31 04:45] LABS: Anion Gap 2 mmol/L (8-16); Blood Urea Nitrogen 45 mg/dL (9-20); Calcium 8.7 mg/dL (8.4-10.2); Carbon Dioxide 22 mmol/L (22-30); Chloride 105 mmol/L (98-107); Estimated CRCL calculation 60 ml/min; Estimated Glomerular Filt Rate 53; Glucose 158 mg/dL (65-110); Potassium 3.8 mmol/L (3.4-5.0); Sodium 129 mmol/L (137-145)
[2023-01-31 04:54] LABS: NT Pro B Type Natriuretic Pept 10800 pg/mL (19.9-100)
[2023-01-31 05:22] LABS: Band Neutrophils Percent 9 % (0-6); Eosinophils Absolute Manual 0.46 K/mm3 (0.02-0.5); Eosinophils Percent Manual 2 % (0-4); Lymphocytes Absolute Manual 0.92 K/mm3 (1.1-4.5); Monocytes Absolute Manual 1.15 K/mm3 (0.1-0.90); Monocytes Percent Manual 5 % (3-9); Neutrophils Absolute Manual 20.47 K/mm3 (1.3-6.7); Neutrophils Percent Manual 80 % (46-73); Schistocytes None Seen (NORMAL); Total Cells Counted 100
[2023-01-31 08:00] LABS: Glucose Point of Care 165 mg/dl (65-105)
[2023-01-31] MEDS: SACUBITRIL/VALSARTAN 97-103 MG TABLET 1 TAB PO ×2 (09:22→21:21)
[2023-01-31] MEDS: APIXABAN 5 MG TABLET PO ×2 (09:22→21:21)
[2023-01-31] MEDS: carvediloL 25 MG TABLET PO ×2 (09:22→21:21)
[2023-01-31] MEDS: FUROSEMIDE INJ 40 MG/4 ML VIAL IV PUSH ×2 (09:23→16:37)
[2023-01-31] MEDS: INSULIN HUMAN NPH (*BKC) 100 UNITS/ML 20 UNITS SUB-Q ×2 (09:29→16:37)
--- NOTE | 2023-01-31 10:27 | PM.PNGS ---
Progress Note: A&P Assessment and Plan (1) Sepsis: Code(s): A41.9 - Sepsis, unspecified organism Status: Acute Assessment and Plan: WBC improved, clinically better, cont abx and supportive care (2) Lymphadenopathy: Code(s): R59.1 - Generalized enlarged lymph nodes Status: Acute Assessment and Plan: likely reactive, cont to observe (3) Incisional hernia: Qualifiers: Obstruction and gangrene presence: without obstruction or gangrene Qualified Code(s): K43.2 - Incisional hernia without obstruction or gangrene Code(s): K43.2 - Incisional hernia without obstruction or gangrene Status: Acute Assessment and Plan: benign exam, poor surgical candidate, will cont to manage conservatively Subjective Subjective Date/Time Seen: 01/31/23 10:27 Interval history: no acute issues, feels a little better Review of Systems Review of Systems: All systems reviewed & are unremarkable except as noted in HPI and below Exam Const: General: cooperative, no acute distress, ill appearing and obese Resp: Auscultation: diminished lung sounds Cardio: Rate: regular rate Rhythm: regular rhythm GI: Inspection: normal to inspection Other: incisional hernia - reducible, non tender LIH - reducible, non tender Extrem: Other: venous stasis Objective Data Vital Signs Vital Signs: Vital Signs - 24 hr 01/30/23 11:50 01/30/23 12:00 01/30/23 14:00 Temperature 36.0 C L Pulse Rate 94 99 96 Respiratory Rate 20 Blood Pressure 117/69 Pulse Oximetry 95 Oxygen Delivery 01/30/23 12:00 01/30/23 15:56 01/30/23 16:00 Temperature 36.3 C L Pulse Rate 94 97 Respiratory Rate 22 H Blood Pressure 100/50 L Pulse Oximetry 95 97 Oxygen Delivery Room Air 01/30/23 16:00 01/30/23 16:49 01/30/23 18:00 Temperature Pulse Rate 92 Respiratory Rate Blood Pressure 101/50 L Pulse Oximetry 97 Oxygen Delivery CPAP 01/30/23 20:03 01/30/23 20:00 01/30/23 20:00 Temperature 36.6 C Pulse Rate 93 94 Respiratory Rate 22 H Blood Pressure 120/75 Pulse Oximetry 97 Oxygen Delivery CPAP 01/30/23 20:00 01/30/23 22:00 01/30/23 21:15 Temperature Pulse Rate 99 85 85 Respiratory Rate Blood Pressure Pulse Oximetry Oxygen Delivery CPAP 01/30/23 23:38 01/30/23 23:46 01/31/23 00:00 Temperature 36.6 C Pulse Rate 92 88 Respiratory Rate 22 H Blood Pressure 103/55 L Pulse Oximetry 100 Oxygen Delivery CPAP 01/31/23 02:00 01/31/23 04:00 01/31/23 04:00 Temperature 36.4 C Pulse Rate 87 100 Respiratory Rate 22 H Blood Pressure 107/77 Pulse Oximetry 96 Oxygen Delivery CPAP 01/31/23 04:00 01/31/23 06:00 01/31/23 08:00 Temperature Pulse Rate 78 92 Respiratory Rate Blood Pressure Pulse Oximetry Oxygen Delivery CPAP 01/31/23 08:00 01/31/23 09:22 01/31/23 08:00 Temperature 36.4 C Pulse Rate 90 91 91 Respiratory Rate 20 Blood Pressure 109/65 Pulse Oximetry 99 Oxygen Delivery Intake/Output Intake/Output: Intake & Output 01/28/23 01/29/23 01/30/23 01/31/23 23:59 23:59 23:59 23:59 Intake Total 1050 1580 2215 2220 Output Total 350 1150 550 Balance 1050 1230 1065 1670 Meds/Results Medications: Active Medications Generic Name Dose Route Start Last Admin Trade Name Helga PRN Reason Stop Dose Admin Acetaminophen 650 mg 01/28/23 17:14 Acetaminophen 325 Mg Tablet PO Q4H PRN Mild Pain (1-3) or Fever Apixaban 5 mg 01/28/23 21:00 01/31/23 09:22 Apixaban 5 Mg Tablet PO 5 mg Q12HR JIN Administration Carvedilol 25 mg 01/29/23 21:00 01/31/23 09:22 Carvedilol 25 Mg Tablet PO 25 mg Q12HR JIN Administration Furosemide 40 mg 01/29/23 17:00 01/31/23 09:23 Furosemide Inj 40 Mg/4 Ml Vial IV PUSH 40 mg BID JIN Administration Ceftriaxone Sodium 1 gm in 50 mls @ 100 mls/hr 01/29/23 17:00
[2023-01-31 11:47] LABS: Glucose Point of Care 170 mg/dl (65-105)
--- NOTE | 2023-01-31 13:43 | PM.IMPN ---
Progress Note: A&P Assessment and Plan (1) Severe sepsis: Code(s): A41.9 - Sepsis, unspecified organism; R65.20 - Severe sepsis without septic shock Status: Acute Assessment and Plan: admit to IMU [facility]lie fa[facility]ner flagyl (added bc of increase wbc) wbc increased today await cultures supportive care continue to monitor (2) UTI (urinary tract infection): Qualifiers: Hematuria presence: with hematuria Urinary tract infection type: acute cystitis Qualified Code(s): N30.01 - Acute cystitis with hematuria Code(s): N39.0 - Urinary tract infection, site not specified Status: Acute Assessment and Plan: iv abx (3) Acute kidney injury: Code(s): N17.9 - Acute kidney failure, unspecified Status: Acute Assessment and Plan: holding Entresto gentle hydration continue to monitor BUN and creatinine Strict intake and output daily (4) Nausea and vomiting: Qualifiers: Vomiting type: unspecified Qualified Code(s): R11.2 - Nausea with vomiting, unspecified Code(s): R11.2 - Nausea with vomiting, unspecified Status: Acute Assessment and Plan: likely secondary to above supportive care (5) Lactic acidosis: Code(s): E87.20 - Acidosis, unspecified Status: Acute Assessment and Plan: secondary to sepsis continue to monitor (6) COPD (chronic obstructive pulmonary disease): Qualifiers: COPD type: unspecified COPD Qualified Code(s): J44.9 - Chronic obstructive pulmonary disease, unspecified Code(s): J44.9 - Chronic obstructive pulmonary disease, unspecified Status: Acute Assessment and Plan: not actively wheezing (7) Lymphedema of both lower extremities: Code(s): I89.0 - Lymphedema, not elsewhere classified Status: Acute Assessment and Plan: compression stockings (8) Incisional hernia: Qualifiers: Obstruction and gangrene presence: without obstruction or gangrene Qualified Code(s): K43.2 - Incisional hernia without obstruction or gangrene Code(s): K43.2 - Incisional hernia without obstruction or gangrene Status: Acute Assessment and Plan: unchanged (9) Afib: Qualifiers: Atrial fibrillation type: paroxysmal Qualified Code(s): I48.0 - Paroxysmal atrial fibrillation Code(s): I48.91 - Unspecified atrial fibrillation Status: Acute Assessment and Plan: unchanged rate controlled and anticoagulated (10) Moderate to severe pulmonary hypertension: Code(s): I27.20 - Pulmonary hypertension, unspecified Status: Acute Assessment and Plan: on CPAP at nighttime (11) Sleep apnea: Qualifiers: Sleep apnea type: unspecified type Qualified Code(s): G47.30 - Sleep apnea, unspecified Code(s): G47.30 - Sleep apnea, unspecified Status: Acute Assessment and Plan: on CPAP at nighttime (12) CHF (congestive heart failure): Code(s): I50.9 - Heart failure, unspecified Status: Acute Assessment and Plan: ejection fraction calculated at 30% repeat echocardiogram in a.m. Strict intake and output daily gentle diuresis as needed however patient is tenuous continue to monitor Subjective Date/time seen: 01/31/23 13:43 Interval history: Feeling better, no new complaints Exam Narrative: patient is laying in bed Const: General: comfortable, no acute distress, well developed, alert, awake, ill appearing chronically and obese ( morbid) Nutritional Appearance: obese ( morbid) morbidly obese Orientation/consciousness: patient oriented x3 HENMT: Head: normal to inspection, normocephalic and atraumatic Ears: hearing grossly normal bilaterally Face/Nose/Sinus: normal facial exam Face and sinus: normal facial exam Eyes: General: appearance normal, both eyes and all related structures Pupils: Equal, round and reactive pupils
[2023-01-31 16:05] LABS: Glucose Point of Care 234 mg/dl (65-105)
[2023-01-31 19:41] LABS: Glucose Point of Care 198 mg/dl (65-105)
[2023-01-31] MEDS: WATER FOR IRRIGATION, STERILE 1,000 ML BOTTLE 1000 ML (21:18)
[2023-02-01] VITALS (21 sets, daily range): BP systolic 98–126; BP diastolic 46–63; PULSE 87–102; RESP 18–28; TEMP 36.4–36.8; O2SAT 93–97
[2023-02-01 00:29] LABS: Toxigenic C. Diff NEGATIVE (NEGATIVE)
[2023-02-01] MEDS: metroNIDAZOLE 500 MG/ISO 100ML 500 MG/100 ML BAG 100 MG IVPB ×3 (01:33→18:53)
[2023-02-01 05:14] LABS: Estimated CRCL calculation 70 ml/min; Estimated Glomerular Filt Rate > 60
[2023-02-01 07:51] LABS: Glucose Point of Care 148 mg/dl (65-105)
[2023-02-01 08:55] LABS: Basophils Absolute Auto 0.1 K/mm3 (0.0-0.1); Basophils Percent Auto 0.5 % (0.2-1.2); Eosinophils Percent Auto 0.1 % (0-4.4); Hematocrit 34.8 % (42.0-52.0); Hemoglobin 11.8 g/dL (14.0-18.0); Immature Granulocyte Absolute 0.34 K/mm3 (0.00-0.031); Immature Granulocyte Percent A 1.8 % (0-0.5); Lymphocytes Absolute Auto 1.16 K/mm3 (0.9-3.2); Lymphocytes Percent Auto 6.3 % (18.3-44.2); Mean Corpuscular HGB Conc 33.9 g/dl (32-36); Mean Corpuscular Hemoglobin 32.9 pg (26-34); Mean Corpuscular Volume 96.9 fl (80-100); Mean Platelet Volume 12.3 fl (7.4-10.4); Monocytes Percent Auto 5.5 % (2.6-8.5); Neutrophils Absolute Auto 15.8 K/mm3 (1.3-6.7); Neutrophils Percent Auto 85.8 % (45.5-73.1); Nucleated Red Blood Cells Absolute Auto 0.1 K/mm3 (0.0-0.012); Nucleated Red Blood Cells Perc 0.3 % (0.0-0.2); Platelet Count Result 106 k/mm3 (150-375); Red Blood Count 3.59 M/mm3 (4.6-6.20); Red Cell Distribution Width 15.4 % (11.5-14.5); White Blood Count 18.5 K/mm3 (4.5-10.0)
[2023-02-01] MEDS: SACUBITRIL/VALSARTAN 97-103 MG TABLET 1 TAB PO ×2 (09:09→20:02)
[2023-02-01] MEDS: carvediloL 25 MG TABLET PO ×2 (09:09→20:02)
[2023-02-01] MEDS: APIXABAN 5 MG TABLET PO ×2 (09:09→20:02)
[2023-02-01] MEDS: INSULIN HUMAN NPH (*BKC) 100 UNITS/ML 20 UNITS SUB-Q ×2 (09:10→16:41)
[2023-02-01] MEDS: FUROSEMIDE INJ 40 MG/4 ML VIAL IV PUSH ×2 (10:39→16:42)
--- NOTE | 2023-02-01 11:01 | P.PNIM_ITS ---
Progress Note: A&P Assessment and Plan (1) Severe sepsis: Code(s): A41.9 - Sepsis, unspecified organism; R65.20 - Severe sepsis without septic shock Status: Acute Assessment and Plan: admit to IMU charlie faulkner flagyl (added bc of increase wbc) wbc increased today await cultures supportive care continue to monitor (2) UTI (urinary tract infection): Qualifiers: Hematuria presence: with hematuria Urinary tract infection type: acute cystitis Qualified Code(s): N30.01 - Acute cystitis with hematuria Code(s): N39.0 - Urinary tract infection, site not specified Status: Acute Assessment and Plan: iv abx (3) Acute kidney injury: Code(s): N17.9 - Acute kidney failure, unspecified Status: Acute Assessment and Plan: holding Entresto gentle hydration continue to monitor BUN and creatinine Strict intake and output daily (4) Nausea and vomiting: Qualifiers: Vomiting type: unspecified Qualified Code(s): R11.2 - Nausea with vomiting, unspecified Code(s): R11.2 - Nausea with vomiting, unspecified Status: Acute Assessment and Plan: likely secondary to above supportive care (5) Lactic acidosis: Code(s): E87.20 - Acidosis, unspecified Status: Acute Assessment and Plan: secondary to sepsis continue to monitor (6) COPD (chronic obstructive pulmonary disease): Qualifiers: COPD type: unspecified COPD Qualified Code(s): J44.9 - Chronic obstructive pulmonary disease, unspecified Code(s): J44.9 - Chronic obstructive pulmonary disease, unspecified Status: Acute Assessment and Plan: not actively wheezing (7) Lymphedema of both lower extremities: Code(s): I89.0 - Lymphedema, not elsewhere classified Status: Acute Assessment and Plan: compression stockings (8) Incisional hernia: Qualifiers: Obstruction and gangrene presence: without obstruction or gangrene Qualified Code(s): K43.2 - Incisional hernia without obstruction or gangrene Code(s): K43.2 - Incisional hernia without obstruction or gangrene Status: Acute Assessment and Plan: unchanged (9) Afib: Qualifiers: Atrial fibrillation type: paroxysmal Qualified Code(s): I48.0 - Paroxysmal atrial fibrillation Code(s): I48.91 - Unspecified atrial fibrillation Status: Acute Assessment and Plan: unchanged rate controlled and anticoagulated (10) Moderate to severe pulmonary hypertension: Code(s): I27.20 - Pulmonary hypertension, unspecified Status: Acute Assessment and Plan: on CPAP at nighttime (11) Sleep apnea: Qualifiers: Sleep apnea type: unspecified type Qualified Code(s): G47.30 - Sleep apnea, unspecified Code(s): G47.30 - Sleep apnea, unspecified Status: Acute Assessment and Plan: on CPAP at nighttime (12) CHF (congestive heart failure): Code(s): I50.9 - Heart failure, unspecified Status: Acute Assessment and Plan: ejection fraction calculated at 30% repeat echocardiogram in a.m. Strict intake and output daily gentle diuresis as needed however patient is tenuous continue to monitor Subjective Date/time seen: 02/01/23 11:01 Interval history: Feeling better Exam Narrative: patient is laying in bed Const: General: comfortable, no acute distre
[2023-02-01 11:52] LABS: Glucose Point of Care 187 mg/dl (65-105)
[2023-02-01 17:07] LABS: Glucose Point of Care 215 mg/dl (65-105)
[2023-02-01 20:24] LABS: Glucose Point of Care 278 mg/dl (65-105)
[2023-02-02] VITALS (12 sets, daily range): BP systolic 101–120; BP diastolic 54–72; PULSE 74–102; RESP 18–19; TEMP 36.2–36.6; O2SAT 94–97
[2023-02-02] MEDS: metroNIDAZOLE 500 MG/ISO 100ML 500 MG/100 ML BAG 100 MG IVPB ×2 (03:03→09:13)
[2023-02-02 07:43] LABS: Glucose Point of Care 140 mg/dl (65-105)
[2023-02-02 09:00] LABS: Vancomycin Trough 16.5 ug/mL (10.0-20.0)
[2023-02-02] MEDS: SACUBITRIL/VALSARTAN 97-103 MG TABLET 1 TAB PO ×2 (09:12→20:23)
[2023-02-02] MEDS: APIXABAN 5 MG TABLET PO ×2 (09:12→20:23)
[2023-02-02] MEDS: carvediloL 25 MG TABLET PO ×2 (09:12→20:23)
[2023-02-02] MEDS: FUROSEMIDE INJ 40 MG/4 ML VIAL IV PUSH ×3 (09:13→17:46)
[2023-02-02] MEDS: INSULIN HUMAN NPH (*BKC) 100 UNITS/ML 20 UNITS SUB-Q ×2 (09:14→17:46)
[2023-02-02 09:50] LABS: Basophils Absolute Auto 0.1 K/mm3 (0.0-0.1); Basophils Percent Auto 0.5 % (0.2-1.2); Eosinophils Absolute Auto 0.1 K/mm3 (0-0.3); Eosinophils Percent Auto 0.5 % (0-4.4); Hematocrit 37.9 % (42.0-52.0); Hemoglobin 12.8 g/dL (14.0-18.0); Immature Granulocyte Absolute 0.34 K/mm3 (0.00-0.031); Immature Granulocyte Percent A 1.8 % (0-0.5); Lymphocytes Absolute Auto 1.46 K/mm3 (0.9-3.2); Lymphocytes Percent Auto 7.8 % (18.3-44.2); Mean Corpuscular HGB Conc 33.8 g/dl (32-36); Mean Corpuscular Hemoglobin 32.7 pg (26-34); Mean Corpuscular Volume 96.7 fl (80-100); Mean Platelet Volume 12.8 fl (7.4-10.4); Monocytes Absolute Auto 1.5 K/mm3 (0.1-0.6); Monocytes Percent Auto 7.8 % (2.6-8.5); Neutrophils Absolute Auto 15.4 K/mm3 (1.3-6.7); Neutrophils Percent Auto 81.6 % (45.5-73.1); Nucleated Red Blood Cells Perc 0.2 % (0.0-0.2); Platelet Count Result 132 k/mm3 (150-375); Red Blood Count 3.92 M/mm3 (4.6-6.20); Red Cell Distribution Width 15.8 % (11.5-14.5); White Blood Count 18.8 K/mm3 (4.5-10.0)
[2023-02-02 09:58] LABS: Anion Gap 2 mmol/L (8-16); Blood Urea Nitrogen 39 mg/dL (9-20); Calcium 9.1 mg/dL (8.4-10.2); Carbon Dioxide 29 mmol/L (22-30); Chloride 102 mmol/L (98-107); Estimated CRCL calculation 77 ml/min; Estimated Glomerular Filt Rate > 60; Glucose 124 mg/dL (65-110); Potassium 3.4 mmol/L (3.4-5.0); Sodium 133 mmol/L (137-145)
[2023-02-02 11:42] LABS: Glucose Point of Care 208 mg/dl (65-105)
--- NOTE | 2023-02-02 12:38 | PM.IMPN ---
Progress Note: A&P Assessment and Plan (1) Severe sepsis: Code(s): A41.9 - Sepsis, unspecified organism; R65.20 - Severe sepsis without septic shock Status: Acute Assessment and Plan: admit to IMU [facility] fa[facility] flagyl (added bc of increase wbc) wbc increased today await cultures supportive care continue to monitor titrate abx (2) UTI (urinary tract infection): Qualifiers: Hematuria presence: with hematuria Urinary tract infection type: acute cystitis Qualified Code(s): N30.01 - Acute cystitis with hematuria Code(s): N39.0 - Urinary tract infection, site not specified Status: Acute Assessment and Plan: iv abx (3) Acute kidney injury: Code(s): N17.9 - Acute kidney failure, unspecified Status: Acute Assessment and Plan: holding Entresto gentle hydration continue to monitor BUN and creatinine Strict intake and output daily (4) Nausea and vomiting: Qualifiers: Vomiting type: unspecified Qualified Code(s): R11.2 - Nausea with vomiting, unspecified Code(s): R11.2 - Nausea with vomiting, unspecified Status: Acute Assessment and Plan: likely secondary to above supportive care (5) Lactic acidosis: Code(s): E87.20 - Acidosis, unspecified Status: Acute Assessment and Plan: secondary to sepsis continue to monitor (6) COPD (chronic obstructive pulmonary disease): Qualifiers: COPD type: unspecified COPD Qualified Code(s): J44.9 - Chronic obstructive pulmonary disease, unspecified Code(s): J44.9 - Chronic obstructive pulmonary disease, unspecified Status: Acute Assessment and Plan: not actively wheezing (7) Lymphedema of both lower extremities: Code(s): I89.0 - Lymphedema, not elsewhere classified Status: Acute Assessment and Plan: compression stockings (8) Incisional hernia: Qualifiers: Obstruction and gangrene presence: without obstruction or gangrene Qualified Code(s): K43.2 - Incisional hernia without obstruction or gangrene Code(s): K43.2 - Incisional hernia without obstruction or gangrene Status: Acute Assessment and Plan: unchanged (9) Afib: Qualifiers: Atrial fibrillation type: paroxysmal Qualified Code(s): I48.0 - Paroxysmal atrial fibrillation Code(s): I48.91 - Unspecified atrial fibrillation Status: Acute Assessment and Plan: unchanged rate controlled and anticoagulated (10) Moderate to severe pulmonary hypertension: Code(s): I27.20 - Pulmonary hypertension, unspecified Status: Acute Assessment and Plan: on CPAP at nighttime (11) Sleep apnea: Qualifiers: Sleep apnea type: unspecified type Qualified Code(s): G47.30 - Sleep apnea, unspecified Code(s): G47.30 - Sleep apnea, unspecified Status: Acute Assessment and Plan: on CPAP at nighttime (12) CHF (congestive heart failure): Code(s): I50.9 - Heart failure, unspecified Status: Acute Assessment and Plan: ejection fraction calculated at 30% repeat echocardiogram in a.m. Strict intake and output daily gentle diuresis as needed however patient is tenuous continue to monitor Subjective Date/time seen: 02/02/23 12:38 Interval history: no complaints feeling much better overall Exam Narrative: patient is laying in bed Const: General: comfortable, no acute distress, well developed, alert, awake, ill appearing chronically and obese ( morbid) Nutritional Appearance: obese ( morbid) morbidly obese Orientation/consciousness: patient oriented x3 HENMT: Head: normal to inspection, normocephalic and atraumatic Ears: hearing grossly normal bilaterally Face/Nose/Sinus: normal facial exam Face and sinus: normal facial exam Eyes: General: appearance normal, both eyes and all related structures Pupils: Equal, roun
[2023-02-02 17:03] LABS: Glucose Point of Care 241 mg/dl (65-105)
[2023-02-02 20:24] LABS: Glucose Point of Care 232 mg/dl (65-105)
--- NOTE | 2023-02-02 21:32 | PC.NURSE ---
This patient, Serg Neri, was transferred to [ [facility]] on 02/02/23 at 2132. Personal belongings sent with patient. Report given to [Yves ramsey ]. Appropriate documentation sent with patient.
[2023-02-03] VITALS (7 sets, daily range): BP systolic 89–134; BP diastolic 44–77; PULSE 80–97; RESP 16–18; TEMP 36.1–36.7; O2SAT 95–100
[2023-02-03 06:31] LABS: Basophils Absolute Auto 0.1 K/mm3 (0.0-0.1); Basophils Percent Auto 0.4 % (0.2-1.2); Eosinophils Absolute Auto 0.2 K/mm3 (0-0.3); Eosinophils Percent Auto 1.2 % (0-4.4); Hematocrit 37.2 % (42.0-52.0); Hemoglobin 12.9 g/dL (14.0-18.0); Immature Granulocyte Absolute 0.46 K/mm3 (0.00-0.031); Immature Granulocyte Percent A 2.7 % (0-0.5); Lymphocytes Absolute Auto 1.59 K/mm3 (0.9-3.2); Lymphocytes Percent Auto 9.5 % (18.3-44.2); Mean Corpuscular HGB Conc 34.7 g/dl (32-36); Mean Corpuscular Hemoglobin 33.2 pg (26-34); Mean Corpuscular Volume 95.6 fl (80-100); Mean Platelet Volume 11.8 fl (7.4-10.4); Monocytes Absolute Auto 1.3 K/mm3 (0.1-0.6); Monocytes Percent Auto 7.4 % (2.6-8.5); Neutrophils Absolute Auto 13.2 K/mm3 (1.3-6.7); Neutrophils Percent Auto 78.8 % (45.5-73.1); Nucleated Red Blood Cells Perc 0.1 % (0.0-0.2); Platelet Count Result 166 k/mm3 (150-375); Red Blood Count 3.89 M/mm3 (4.6-6.20); Red Cell Distribution Width 15.3 % (11.5-14.5); White Blood Count 16.8 K/mm3 (4.5-10.0)
[2023-02-03 06:41] LABS: Anion Gap 0 mmol/L (8-16); Blood Urea Nitrogen 33 mg/dL (9-20); Calcium 8.7 mg/dL (8.4-10.2); Carbon Dioxide 30 mmol/L (22-30); Chloride 103 mmol/L (98-107); Estimated CRCL calculation 85 ml/min; Estimated Glomerular Filt Rate > 60; Glucose 86 mg/dL (65-110); Sodium 133 mmol/L (137-145)
[2023-02-03 06:59] LABS: Platelet Clumps Present; Platelet Estimate Adequate (Adequate); Poikilocytosis 1+ (NORMAL); Target Cells 1+ (NORMAL)
[2023-02-03 07:00] LABS: Acanthocytes 1+ (NORMAL); Burr Cells 1+ (NORMAL); Schistocytes Rare (NORMAL)
[2023-02-03 07:01] LABS: Anisocytosis 1+ (NORMAL)
[2023-02-03 08:19] LABS: Glucose Point of Care 103 mg/dl (65-105)
[2023-02-03] MEDS: SACUBITRIL/VALSARTAN 97-103 MG TABLET 1 TAB PO ×2 (10:05→21:07)
[2023-02-03] MEDS: POTASSIUM CHLORIDE 20 MEQ PACKET (FOR LIQUID) PO (10:05)
[2023-02-03] MEDS: APIXABAN 5 MG TABLET PO ×2 (10:05→21:07)
[2023-02-03] MEDS: POTASSIUM CHLORIDE 20 MEQ ER TABLET 40 MEQ PO (10:05)
[2023-02-03] MEDS: INSULIN HUMAN NPH (*BKC) 100 UNITS/ML 20 UNITS SUB-Q ×2 (10:05→17:22)
[2023-02-03] MEDS: carvediloL 25 MG TABLET PO (10:06)
[2023-02-03] MEDS: FUROSEMIDE 40 MG TABLET PO ×2 (11:05→17:24)
--- NOTE | 2023-02-03 11:18 | PM.IMPN ---
Progress Note: A&P Assessment and Plan (1) Severe sepsis: Code(s): A41.9 - Sepsis, unspecified organism; R65.20 - Severe sepsis without septic shock Status: Acute Assessment and Plan: admit to IMU White blood cell count improved. Continue Rocephin. await cultures supportive care continue to monitor (2) UTI (urinary tract infection): Qualifiers: Hematuria presence: with hematuria Urinary tract infection type: acute cystitis Qualified Code(s): N30.01 - Acute cystitis with hematuria Code(s): N39.0 - Urinary tract infection, site not specified Status: Acute Assessment and Plan: iv abx (3) Acute kidney injury: Code(s): N17.9 - Acute kidney failure, unspecified Status: Acute Assessment and Plan: Monitor (4) Nausea and vomiting: Qualifiers: Vomiting type: unspecified Qualified Code(s): R11.2 - Nausea with vomiting, unspecified Code(s): R11.2 - Nausea with vomiting, unspecified Status: Acute Assessment and Plan: likely secondary to above supportive care (5) Lactic acidosis: Code(s): E87.20 - Acidosis, unspecified Status: Acute Assessment and Plan: secondary to sepsis continue to monitor (6) COPD (chronic obstructive pulmonary disease): Qualifiers: COPD type: unspecified COPD Qualified Code(s): J44.9 - Chronic obstructive pulmonary disease, unspecified Code(s): J44.9 - Chronic obstructive pulmonary disease, unspecified Status: Acute Assessment and Plan: not actively wheezing (7) Lymphedema of both lower extremities: Code(s): I89.0 - Lymphedema, not elsewhere classified Status: Acute Assessment and Plan: compression stockings (8) Incisional hernia: Qualifiers: Obstruction and gangrene presence: without obstruction or gangrene Qualified Code(s): K43.2 - Incisional hernia without obstruction or gangrene Code(s): K43.2 - Incisional hernia without obstruction or gangrene Status: Acute Assessment and Plan: unchanged (9) Afib: Qualifiers: Atrial fibrillation type: paroxysmal Qualified Code(s): I48.0 - Paroxysmal atrial fibrillation Code(s): I48.91 - Unspecified atrial fibrillation Status: Acute Assessment and Plan: unchanged rate controlled and anticoagulated (10) Moderate to severe pulmonary hypertension: Code(s): I27.20 - Pulmonary hypertension, unspecified Status: Acute Assessment and Plan: on CPAP at nighttime (11) Sleep apnea: Qualifiers: Sleep apnea type: unspecified type Qualified Code(s): G47.30 - Sleep apnea, unspecified Code(s): G47.30 - Sleep apnea, unspecified Status: Acute Assessment and Plan: on CPAP at nighttime (12) CHF (congestive heart failure): Code(s): I50.9 - Heart failure, unspecified Status: Acute Assessment and Plan: Resume home medications. Appears compensated right now. Subjective Date/time seen: 02/03/23 11:18 Interval history: Patient feels much better overall. White blood cell count improving. Exam Narrative: patient is laying in bed Const: General: comfortable, no acute distress, well developed, alert, awake, ill appearing chronically and obese ( morbid) Nutritional Appearance: obese ( morbid) morbidly obese Orientation/consciousness: patient oriented x3 HENMT: Head: normal to inspection, normocephalic and atraumatic Ears: hearing grossly normal bilaterally Face/Nose/Sinus: normal facial exam Face and sinus: normal facial exam Eyes: General: appearance normal, both eyes and all related structures Pupils: Equal, round and reactive pupils present EOM: EOMs intact bilaterally Neck: Neck: full ROM, no lymphadenopathy and no JVD Thyroid: thyroid normal Lymphatic: no lymphadenopathy noted Resp: Effort & Inspection: normal respiratory e
[2023-02-03 11:53] LABS: Glucose Point of Care 190 mg/dl (65-105)
[2023-02-03 17:02] LABS: Glucose Point of Care 205 mg/dl (65-105)
[2023-02-03] MEDS: carvediloL 12.5 MG TABLET PO (21:07)
[2023-02-04 00:29] LABS: Glucose Point of Care 232 mg/dl (65-105)
[2023-02-04 05:29] VITALS: PULSE 76; O2SAT 96
[2023-02-04 06:00] VITALS: BP 104/48; PULSE 84; RESP 18; TEMP 36.6; O2SAT 96
[2023-02-04 06:54] LABS: Basophils Absolute Auto 0.1 K/mm3 (0.0-0.1); Basophils Percent Auto 0.4 % (0.2-1.2); Eosinophils Absolute Auto 0.2 K/mm3 (0-0.3); Eosinophils Percent Auto 0.9 % (0-4.4); Hematocrit 38.2 % (42.0-52.0); Hemoglobin 13.1 g/dL (14.0-18.0); Immature Granulocyte Absolute 0.52 K/mm3 (0.00-0.031); Immature Granulocyte Percent A 3.3 % (0-0.5); Lymphocytes Absolute Auto 1.63 K/mm3 (0.9-3.2); Lymphocytes Percent Auto 10.3 % (18.3-44.2); Mean Corpuscular HGB Conc 34.3 g/dl (32-36); Mean Corpuscular Hemoglobin 32.8 pg (26-34); Mean Corpuscular Volume 95.7 fl (80-100); Mean Platelet Volume 11.3 fl (7.4-10.4); Monocytes Absolute Auto 1.4 K/mm3 (0.1-0.6); Monocytes Percent Auto 8.6 % (2.6-8.5); Neutrophils Absolute Auto 12.2 K/mm3 (1.3-6.7); Neutrophils Percent Auto 76.5 % (45.5-73.1); Nucleated Red Blood Cells Perc 0.2 % (0.0-0.2); Platelet Count Result 267 k/mm3 (150-375); Red Blood Count 3.99 M/mm3 (4.6-6.20); Red Cell Distribution Width 15.5 % (11.5-14.5); White Blood Count 15.9 K/mm3 (4.5-10.0)
[2023-02-04 07:03] LABS: Anion Gap 4 mmol/L (8-16); Blood Urea Nitrogen 31 mg/dL (9-20); Calcium 8.9 mg/dL (8.4-10.2); Carbon Dioxide 30 mmol/L (22-30); Chloride 105 mmol/L (98-107); Estimated CRCL calculation 94 ml/min; Estimated Glomerular Filt Rate > 60; Glucose 138 mg/dL (65-110); Potassium 3.4 mmol/L (3.4-5.0); Sodium 139 mmol/L (137-145)
[2023-02-04 07:59] LABS: Glucose Point of Care 141 mg/dl (65-105)
[2023-02-04] MEDS: INSULIN HUMAN NPH (*BKC) 100 UNITS/ML 20 UNITS SUB-Q ×2 (08:42→16:53)
[2023-02-04] MEDS: carvediloL 12.5 MG TABLET PO (08:43)
[2023-02-04] MEDS: SACUBITRIL/VALSARTAN 97-103 MG TABLET 1 TAB PO (08:43)
[2023-02-04] MEDS: FUROSEMIDE 40 MG TABLET PO ×2 (08:43→16:51)
[2023-02-04] MEDS: APIXABAN 5 MG TABLET PO (08:43)
[2023-02-04 11:39] LABS: Glucose Point of Care 222 mg/dl (65-105)
--- NOTE | 2023-02-04 13:46 | PM.DS ---
DS: Admitting Diagnosis Discharge Date 02/04/23 Admitting Diagnosis Fall DS: Discharge Diagnosis Discharge Diagnosis (1) Severe sepsis: Code(s): A41.9 - Sepsis, unspecified organism; R65.20 - Severe sepsis without septic shock Status: Acute (2) Cellulitis of left leg: Code(s): L03.116 - Cellulitis of left lower limb Status: Acute (3) UTI (urinary tract infection): Qualifiers: Hematuria presence: with hematuria Urinary tract infection type: acute cystitis Qualified Code(s): N30.01 - Acute cystitis with hematuria Code(s): N39.0 - Urinary tract infection, site not specified Status: Acute (4) Acute kidney injury: Code(s): N17.9 - Acute kidney failure, unspecified Status: Acute (5) Nausea and vomiting: Qualifiers: Vomiting type: unspecified Qualified Code(s): R11.2 - Nausea with vomiting, unspecified Code(s): R11.2 - Nausea with vomiting, unspecified Status: Acute (6) Lactic acidosis: Code(s): E87.20 - Acidosis, unspecified Status: Acute (7) COPD (chronic obstructive pulmonary disease): Qualifiers: COPD type: unspecified COPD Qualified Code(s): J44.9 - Chronic obstructive pulmonary disease, unspecified Code(s): J44.9 - Chronic obstructive pulmonary disease, unspecified Status: Acute Assessment and Plan: not actively wheezing (8) Lymphedema of both lower extremities: Code(s): I89.0 - Lymphedema, not elsewhere classified Status: Acute (9) Incisional hernia: Qualifiers: Obstruction and gangrene presence: without obstruction or gangrene Qualified Code(s): K43.2 - Incisional hernia without obstruction or gangrene Code(s): K43.2 - Incisional hernia without obstruction or gangrene Status: Acute (10) Afib: Qualifiers: Atrial fibrillation type: paroxysmal Qualified Code(s): I48.0 - Paroxysmal atrial fibrillation Code(s): I48.91 - Unspecified atrial fibrillation Status: Acute (11) Moderate to severe pulmonary hypertension: Code(s): I27.20 - Pulmonary hypertension, unspecified Status: Acute (12) Sleep apnea: Qualifiers: Sleep apnea type: unspecified type Qualified Code(s): G47.30 - Sleep apnea, unspecified Code(s): G47.30 - Sleep apnea, unspecified Status: Acute (13) CHF (congestive heart failure): Code(s): I50.9 - Heart failure, unspecified Status: Acute (14) Difficult Baker catheter placement: Code(s): T83.9XXA - Unspecified complication of genitourinary prosthetic device, implant and graft, initial encounter Status: Acute DS: Summary Hospital Course Reason for hospitalization: 77yo male with CHF, DM and AFib here for weakness and fall. Please see H&P for details Hospital Course: Prior to admission, patient was having nausea, vomiting, generalized weakness, chills and poor appetite. Lactic acid was 4.5. Urinalysis was consistent with UTI with exception and did have many squamous epithelial cells. Creatinine was elevated 1.8. BNP was 13 K. white count was high as [address] of the abdomen and pelvis showed cardiomegaly, stable moderate pericardial effusion and inflammatory changes in the left inguinal subcutaneous fat. Also had bilateral inguinal lymphadenopathy worse on the left. He had bladder wall inflammation. Chest x-ray was clear. Renal ultrasound showed normal size kidneys and no hydronephrosis. 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 Urology was consulted in with a were able to place Baker catheter. Patient had the Baker catheter in place but this was ultimately removed before discharge. Patient has been voiding normally. Patient was seen by General surgery for incisional hernia. This was reducible. No signs or symptoms of incarceration. Surgery felt patient was a poor surgical candidate. Abdominal exam
[2023-02-04 14:00] VITALS: BP 105/62; PULSE 92; RESP 18; TEMP 36.4; O2SAT 96
[2023-02-04 15:44] LABS: SARS-CoV-2 RNA PCR Negative (Negative)
[2023-02-04 16:55] LABS: Glucose Point of Care 222 mg/dl (65-105)
== END 2023-02-04 17:40 | DRG 871 ==
LOC: ANHED 15:43 → ANHIMU 17:36 → ANH3MEDSUR 02-02 21:31
PROVIDERS: Chiropractor; Emergency Medicine; Internal Medicine; Physician Assistant; Admitting Provider Hospitalist; Emergency Provider Physician Assistant; PCP Family Medicine; Visit Provider Internal Medicine
DX: A41.9 Sepsis, unspecified organism (principal); I50.23 Acute on chronic systolic (congestive) heart failure; N39.0 Urinary tract infection, site not specified; L03.116 Cellulitis of left lower limb; N17.9 Acute kidney failure, unspecified; E87.20 Acidosis, unspecified; Z68.42 Body mass index [BMI] 45.0-49.9, adult; R65.20 Severe sepsis without septic shock; Z20.822 Contact with and (suspected) exposure to COVID-19; R11.2 Nausea with vomiting, unspecified; J44.9 Chronic obstructive pulmonary disease, unspecified; I89.0 Lymphedema, not elsewhere classified; K43.2 Incisional hernia without obstruction or gangrene; I48.0 Paroxysmal atrial fibrillation; N35.911 Unspecified urethral stricture, male, meatal; G47.30 Sleep apnea, unspecified; I27.20 Pulmonary hypertension, unspecified; Z79.01 Long term (current) use of anticoagulants; Z86.718 Personal history of other venous thrombosis and embolism; Z85.46 Personal history of malignant neoplasm of prostate; Z85.47 Personal history of malignant neoplasm of testis; Z86.711 Personal history of pulmonary embolism; E11.9 Type 2 diabetes mellitus without complications; I48.91 Unspecified atrial fibrillation; M19.90 Unspecified osteoarthritis, unspecified site; Z90.49 Acquired absence of other specified parts of digestive tract; Z90.81 Acquired absence of spleen; E66.01 Morbid (severe) obesity due to excess calories; I44.7 Left bundle-branch block, unspecified
CPT/HCPCS: 36415; 36600; 71045; 74177; 76775; 80048; 80053; 80202; 81001; 82375; 82565; 82805; 82948; 83050; 83605; 83690; 83880; 84484; 85025; 85055; 87040; 87086; 87088; 87493; 87635; 93005; 96365; 96366; 96367; 96375; 97110; 97116; 97161; 97165; 97530; 97535; 99285; A9270; C8929; G0378; J0696; J1815; J1836; J1940; J2405; J2543; J3370; J7030; Q9957; Q9967

== ENCOUNTER 2023-03-23 13:52 | Outpatient (CLI) | payer MEDICARE, SELFPAY ==
[2023-03-23 19:58] LABS: Alanine Aminotransferase 18 U/L (6-50); Albumin Level 3.4 g/dL (3.5-5.1); Alkaline Phosphatase 67 U/L (38-126); Anion Gap 8 mmol/L (8-16); Aspartate Amino Transferase 31 U/L (17-59); Bilirubin,Total 0.7 mg/dL (0.2-1.3); Blood Urea Nitrogen 21 mg/dL (9-20); Calcium 9.2 mg/dL (8.4-10.2); Carbon Dioxide 23 mmol/L (22-30); Chloride 103 mmol/L (98-107); Estimated Glomerular Filt Rate > 60; Glucose 148 mg/dL (65-110); Potassium 4.2 mmol/L (3.4-5.0); Sodium 134 mmol/L (137-145)
[2023-03-23 20:24] LABS: Vitamin D 25 Hydroxy 34.7 ng/mL
== END 2023-03-23 13:53 | disposition home or self-care (01) ==
LOC: ANHGOSHLAB 13:56
PROVIDERS: PCP Family Medicine; Visit Provider Family Medicine
DX: E11.9 Type 2 diabetes mellitus without complications (principal); E55.9 Vitamin D deficiency, unspecified; I10 Essential (primary) hypertension
CPT/HCPCS: 36415; 80053; 82306; 83036

== ENCOUNTER 2023-08-11 08:42 | Outpatient (CLI) | payer MEDICARE, SELFPAY ==
[2023-08-11 14:20] LABS: Basophils Percent Auto 0.2 % (0.2-1.2); Eosinophils Absolute Auto 0.2 K/mm3 (0-0.3); Eosinophils Percent Auto 1.9 % (0-4.4); Hematocrit 43.5 % (42.0-52.0); Hemoglobin 13.9 g/dL (14.0-18.0); Immature Granulocyte Absolute 0.02 K/mm3 (0.00-0.031); Immature Granulocyte Percent A 0.2 % (0-0.5); Lymphocytes Absolute Auto 3.33 K/mm3 (0.9-3.2); Lymphocytes Percent Auto 39.4 % (18.3-44.2); Mean Corpuscular Hemoglobin 31.3 pg (26-34); Mean Platelet Volume 12.2 fl (7.4-10.4); Monocytes Percent Auto 11.6 % (2.6-8.5); Neutrophils Percent Auto 46.7 % (45.5-73.1); Platelet Count Result 208 k/mm3 (150-375); Red Blood Count 4.44 M/mm3 (4.6-6.20); Red Cell Distribution Width 19.1 % (11.5-14.5); White Blood Count 8.5 K/mm3 (4.5-10.0)
[2023-08-11 14:54] LABS: Alanine Aminotransferase 12 U/L (6-50); Albumin Level 3.7 g/dL (3.5-5.1); Alkaline Phosphatase 71 U/L (38-126); Anion Gap 4 mmol/L (8-16); Aspartate Amino Transferase 83 U/L (17-59); Bilirubin,Total 0.6 mg/dL (0.2-1.3); Blood Urea Nitrogen 22 mg/dL (9-20); Calcium 9.9 mg/dL (8.4-10.2); Carbon Dioxide 28 mmol/L (22-30); Chloride 110 mmol/L (98-107); Cholesterol 131 mg/dL (0-200); Estimated Glomerular Filt Rate 58; Glucose 100 mg/dL (65-110); HDL Direct 33 mg/dL; Potassium 4.5 mmol/L (3.4-5.0); Sodium 142 mmol/L (137-145); Triglycerides 85 mg/dL (<150)
[2023-08-11 15:07] LABS: LDL Cholesterol Direct 72 mg/dL
[2023-08-11 15:22] LABS: Creatinine Urine 119.8 mg/dL
[2023-08-11 15:27] LABS: MALB Creatinine Ratio 125.4 mg/g (0-30); Microalbumin Urine Random 150.2 mg/L (0-16.7)
[2023-08-11 15:30] LABS: Vitamin D 25 Hydroxy 54.7 ng/mL
[2023-08-11 15:35] LABS: Prostate Specific Antigen < 0.1 ng/mL (< OR = 4.0)
[2023-08-11 15:41] LABS: Hemoglobin A1C 6.2 % (<5.7)
== END 2023-08-11 08:43 | disposition home or self-care (01) ==
PROVIDERS: PCP Family Medicine; Visit Provider Family Medicine
DX: E78.5 Hyperlipidemia, unspecified (principal); I89.0 Lymphedema, not elsewhere classified; E11.69 Type 2 diabetes mellitus with other specified complication; Z79.4 Long term (current) use of insulin; Z12.5 Encounter for screening for malignant neoplasm of prostate; E55.9 Vitamin D deficiency, unspecified; E53.8 Deficiency of other specified B group vitamins; I11.0 Hypertensive heart disease with heart failure
CPT/HCPCS: 36415; 80053; 80061; 82043; 82306; 82607; 83036; 84153; 84443; 85025; G0103

== ENCOUNTER 2024-01-29 12:34 | Outpatient (CLI) | payer MEDICARE, SELFPAY ==
[2024-01-29 13:51] LABS: Basophils Percent Auto 0.4 % (0.2-1.2); Eosinophils Absolute Auto 0.1 K/mm3 (0-0.3); Eosinophils Percent Auto 1.2 % (0-4.4); Hematocrit 45.5 % (42.0-52.0); Hemoglobin 15.3 g/dL (14.0-18.0); Immature Granulocyte Absolute 0.03 K/mm3 (0.00-0.031); Immature Granulocyte Percent A 0.4 % (0-0.5); Lymphocytes Percent Auto 32.6 % (18.3-44.2); Mean Corpuscular HGB Conc 33.6 g/dl (32-36); Mean Corpuscular Hemoglobin 33.6 pg (26-34); Mean Corpuscular Volume 99.8 fl (80-100); Mean Platelet Volume 11.7 fl (7.4-10.4); Monocytes Absolute Auto 0.8 K/mm3 (0.1-0.6); Monocytes Percent Auto 9.4 % (2.6-8.5); Neutrophils Absolute Auto 4.6 K/mm3 (1.3-6.7); Platelet Count Result 182 k/mm3 (150-375); Red Blood Count 4.56 M/mm3 (4.6-6.20); Red Cell Distribution Width 16.2 % (11.5-14.5); White Blood Count 8.3 K/mm3 (4.5-10.0)
[2024-01-29 14:52] LABS: Alanine Aminotransferase 11 U/L (6-50); Albumin Level 3.7 g/dL (3.5-5.1); Alkaline Phosphatase 60 U/L (38-126); Anion Gap 7 mmol/L (4-12); Aspartate Amino Transferase 56 U/L (17-59); Bilirubin,Total 0.6 mg/dL (0.2-1.3); Blood Urea Nitrogen 26 mg/dL (9-20); Calcium 9.9 mg/dL (8.4-10.2); Carbon Dioxide 29 mmol/L (22-30); Chloride 104 mmol/L (98-107); Estimated Glomerular Filt Rate 58; Glucose 90 mg/dL (65-110); Potassium 4.6 mmol/L (3.4-5.0); Sodium 140 mmol/L (137-145)
[2024-01-29 19:48] LABS: Hemoglobin A1C 6.5 % (<5.7)
[2024-01-29 23:51] LABS: Iron 70 ug/dL (49-181); Percent Iron Saturation 26 % (20-50)
== END 2024-01-29 12:35 | disposition home or self-care (01) ==
LOC: ANHGOSHLAB 12:35
PROVIDERS: PCP Family Medicine; Visit Provider Family Medicine
DX: D64.9 Anemia, unspecified (principal); I10 Essential (primary) hypertension; E11.69 Type 2 diabetes mellitus with other specified complication; Z79.4 Long term (current) use of insulin
CPT/HCPCS: 36415; 80053; 82728; 83036; 83540; 83550; 85025

== ENCOUNTER 2024-08-17 09:19 | Outpatient (CLI) | payer MEDICARE, SELFPAY ==
--- OUTSIDE RECORDS SUMMARY | 2024-08-17 10:08 | XMS_ITS | Referral Summary ---
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); Nonrheumatic aortic valve insufficiency; Chronic atrial fibrillation (HCC); Chronic anticoagulation from Last 3 Months Allergies No known active allergies Medications insulin NPH-insulin regular (HumuLIN 70/30) 100 unit/mL (70-30) injection inject by subcutaneous route as per insulin protocol 0 3 Active Additional Information Patient not taking.Reported on 07/12/2024 apixaban (ELIQUIS) 5 mg tablet Take 1 tablet (5 mg total) by mouth 2 (two) times a day Active furosemide (LASIX) 40 mg tabletIndicatio ns:Chronic combined systolic and diastolic congestive heart failure (CMS/HCC) (HCC) Take 1 tablet (40 mg total) by mouth daily 1 Active cholecalciferol (VITAMIN D-3) 1,000 unit Take 2 tablet/capsule (2,000 Units total) by mouth daily Active potassium chloride ER 10 mEq CR tablet Take 1 tablet/capsule (10 mEq total) by mouth daily 3 Active Saccharomyces boulardii (FLORASTOR) 250 mg capsule Take 1 capsule (250 mg total) by mouth 2 (two) times a day 3 Active linaCLOtide (LINZESS) 290 mcg capsule 1 capsule (290 mcg total) daily as needed Active carvediloL (COREG) 12.5 mg tablet TAKE 1 TABLET BY MOUTH TWICE A DAY WITH MEALS/FOOD 180 tablet 2 4 Active Jardiance 10 mg tablet TAKE 1 TABLET BY MOUTH DAILY 90 tablet 3 4 Active insulin aspart protamine-insul in aspart 70/30 (NovoLOG 70/30) 100 unit/mL pen for injection Inject under the skin Active sacubitriL-vals dony (ENTRESTO) 24-26 mg tabletIndicatio ns:chronic heart failure Take 1 tablet by mouth 2 (two) times a day 180 tablet 3 5 Active Active Problems Problem Noted Date Diagnosed Date Chronic combined systolic an d diastolic heart failure (CMS/HCC) 06/11/2021 Thromboembolism 10/13/2019 Nonrheumatic aortic valve insufficiency 10/13/19 20 Pulmonary hypertension 10/13/2019 SOB (shortness of breath) 07/07/2018 Morbid obesity with BMI of 40.0-44.9, adult 05/22 Chronic atrial fibrillation 06/02/2017 Body mass index 40+ - severely obese 08/13/2016 Overview (09/26/2016): Morbid obesity with BMI of 45.0-49.9, adult Obstructive sleep apnea syndrome 04/11/2015 Overview (09/26/2016): Obstructive sleep apnea Hypervolemia 04/11/2015 Overview (09/26/2016): Hypervolemia, unspecified hypervolemia type Morbid obesity 04/11/2015 Overview (09/26/2016): Morbid obesity with body mass index of 40.0-44.9 in adult Cardiomyopathy 04/11/2015 Overview (09/26/2016): Nonischemic cardiomyopathy Essential hypertension 04/11/2015 Overview (09/26/2016): Essential hypertension Congestive heart failure (CMS/HCC) 03/30/2014 Overview (09/26/2016): Congestive heart failure Aortic valve disorder 03/30/2014 Overview (09/26/2016): Aortic valve disorder Social History Tobacco Use Types Packs/Day Years Used Date Smoking Tobacco: Never Smokeless Tobacco: Never Tobacco Cessation:Counseling Given: Not Answered Alcohol Use Standard Drinks/Week Comments Yes 1 (1 standard drink = 0.6 oz pur e alcohol) occassionally Sex and Gender Information Value Date Recorded Sex Assigned at Not on file Legal Sex Male 2:33 PM [employer] Gender Identity Not on file Sexual Orientation Not on file Last Filed Vital Signs Vital Sign Reading Time Taken Comments Blood Pressure 110/62 07/12/2024 9:32 AM [employer] Pulse 85 07/12/2024 9:32 AM [employer] Temperature 36.3 C (97.3 F) 06/05/2020 8:20 AM [employer] Respiratory Rate - - Oxygen Saturation 99% 07/12/2024 9:32 AM [employer] Inhaled Oxygen Concentration - - Weight 129.3 kg (285 lb) 07/12/2024 9:32 AM [employer] Height 177.8 cm (5' 10 ) 07/12/2024 9:32 AM [employer] Body Mass Index 40.89 07/12/2024 9:32 AM [employer] Plan of Treatment Not on file Insurance [employer] [facility] MEDICARE Address: [facility] [address] [place] [address] [employer] Care Teams Staff Reporter Relationship Specialty Start Date End Date Artemio Hull MD PCP - General Family Practice 10/24/20
--- OUTSIDE RECORDS SUMMARY | 2024-08-17 10:08 | XMS_ITS | Encounter Summary ---
Author Organization [facility] Address [address] [place] [address] Care Team Providers Care Building Trades Instructor Name Role Phone Garfield Donis MD Primary Care Provider [phone]- [phone] Garfield Donis MD Primary Care Provider +1- [phone] Laquita Edmondson MD Primary Care Provider +1- [phone] Artemio Hull MD Primary Care Provider Encounter Details Date Type Department Care Team (Late st Contact Info) Description 08/25/2016 Orders Only [facility] ProviderSarkis MD [address] [place] [id number] Social History Tobacco Use Types Packs/Day Years Used Date Smoking Tobacco: Never Alcohol Use Standard Drinks/Week Comments Yes 0 (1 standard drink = 0.6 oz pur e alcohol) Sex and Gender Information Value Date Recorded Sex Assigned at Not on file 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 Historical Provider [facility] NANCY CONTRERAS Final Result documented in this encounter Visit Diagnoses Not on filedocumented in this encounter Care Teams Building Trades Instructor Relationship Specialty Start Date End Date Garfield Donis MD [address] [place] [address] PCP - General 09/19/16 12/31/17 Garfield Donis MD [address] [place] [address] PCP - General 03/30/14 09/18/16 Laquita Edmondson MD [address] [place] [address] PCP - General Family Practice 01/01/18 10/23/20 Artemio Hull MD [address] [place] [place] [address] PCP - General Family Practice 10/24/20 documented as of this encounter
--- OUTSIDE RECORDS SUMMARY | 2024-08-17 10:08 | XMS_ITS | Clinical Summary ---
Author Organization [facility] [address] Address [address] [place] [address] Care Team Providers Care Diesel Crane Operator Name Role Phone Artemio Hull MD Primary Care Provider Allergies No known active allergies Medications insulin [...] combined systolic an d diastolic heart failure ([facility]) 06/11/2021 Thromboembolism 10/13/2019 Nonrheumatic aortic valve insufficiency [...] Overview (09/26/2016): Essential hypertension Congestive heart failure ([facility]) 03/30/2014 Overview (09/26/2016): Congestive heart failure Aortic valve disorder 03/30/2014 Overview (09/26/2016): Aortic valve disorder Encounters Date Type Department Care Team Description 07/12/2024 9:30 AM YARN COMBER Office Visit [facility] Cardiology [address] [place] [address] Zenia Espinoza NP Dilated cardiomyopathy (CMS/HCC) (HCC) (Primary Dx); Chronic combined systolic and diastolic heart failure (CMS/HCC) (HCC); Nonrheumatic aortic valve insufficiency; Chronic atrial fibrillation (HCC); Chronic anticoagulation from Last 3 Months Medical History Medical History Date Comments Hx Other Medical Sleep Apnea, CP AP Hx Other Medical Diabetes Type I I Osteoarthritis Osteoarthritis Atrial fibrillation (CMS/HCC) (HCC) CHF (congestive heart failure) (CMS/HCC) (HCC) Diastolic dysfunction Pulmonary embolism (HCC) 04/2019 DVT (deep venous thrombosis) (CMS/HCC) (HCC) 2018 Pulmonary hypertension (HCC) Sleep apnea Prostate cancer (HCC) Family History Medical History Relation Name Comments Other Maternal Grandmother Valve r eplacement; Relation Name Status Comments Maternal Grandmother Social History Tobacco Use Types Packs/Day Years Used Date Smoking Tobacco: Never Smokeless Tobacco: Never Tobacco Cessation:Counseling Given: Not Answered Alcohol Use Standard Drinks/Week Comments Yes 1 (1 standard drink = 0.6 oz pur e alcohol) occassionally Sex and Gender Information Value Date Recorded Sex Assigned at Not on file Legal Sex Male 2:33 PM YARN COMBER Gender Identity Not on file Sexual Orientation Not on file Obstetrics History Last Filed Vital Signs Vital Sign Reading Time Taken Comments Blood Pressure 110/62 07/12/2024 9:32 AM YARN COMBER Pulse 85 07/12/2024 9:32 AM YARN COMBER Temperature 36.3 C (97.3 F) 06/05/2020 8:20 AM YARN COMBER Respiratory Rate - - Oxygen Saturation 99% 07/12/2024 9:32 AM YARN COMBER Inhaled Oxygen Concentration - - Weight 129.3 kg (285 lb) 07/12/2024 9:32 AM YARN COMBER Height 177.8 cm (5' 10 ) 07/12/2024 9:32 AM YARN COMBER Body Mass Index 40.89 07/12/2024 9:32 AM YARN COMBER Plan of Treatment Health Maintenance Due Date Last Done Comments Depression Screening 1945 Fall Risk Assessment 1945 Hepatitis B Screening 12/11/1961 Well Visit 65+ 12/11/2008 Zoster Vaccine (2 of 3) 04/28/2011 03/03/2011 Pneumococcal vaccine 65+ (2 of 2 - PCV) 02/22/2012 0 02/21/2011 Influenza Vaccine (#1) 2024 03/22/2019 DTaP/Tdap/Td Vaccine (2 - Td or Tdap) 03/31/202403/2014, 09/28/2002 Insurance [employer] Care Teams Diesel Crane Operator Relationship Specialty Start Date End Date Artemio Hull MD PCP - General Family Practice 10/24/20
--- OUTSIDE RECORDS SUMMARY | 2024-08-17 10:08 | XMS_ITS | Clinical Summary ---
Author Organization [facility] Address [address] [place] [address] Phone Care Team Providers Care Mechatronics Technician Name Role Phone Laquita Velásquez MD Primary Care Provider Allergies No known active allergies Medications Medication Sig Dispensed Refills Start Date End Date Status apixaban (ELIQUIS) 5 MG tablet Take 5 mg by mouth 2 times daily Active carvedilol (COREG) 25 MG tablet Take 1 tab po in the morning and 1/2 tab po in the evening 08/09/2018 Active insulin NPH-insulin regular (HUMULIN 70/30) (70-30) 100 UNIT/ML injection inject by subcutaneous route as per insulin protocol 07/21/2012 Active NIFEdipine CC (AFEDITAB CR) 30 MG 24 hr tablet TAKE ONE TABLET BY MOUTH ONCE DAILY DIRECTED 05/04/2018 Active valsartan (DIOVAN) 320 MG tablet Take 320 mg by mouth 1 (one) time each day Active ACCU-CHEK GOLDEN PLUS test strip 07/30/2019 Active ACCU-CHEK SOFTCLIX LANCETS lancets 08/02/2019 Active potassium chloride (KLOR-CON) 10 MEQ CR tablet 07/25/2019 Active furosemide (LASIX) 40 MG tablet 08/05/2019 Active Active Problems Problem Noted Date Diagnosed Date Chronic hyperkalemia 11/23/2018 Hyperchloremia 11/23/2018 Proteinuria of undiagnosed cause 11/23/2018 Candidiasis of skin 11/18/2018 Colon cancer screening declined 11/18/2018 Encounter for general adult medical examination with abnormal finding 11/18/2018 Dyspnea 07/07/2018 Anemia 12/08/2017 Chronic combined systolic an d diastolic congestive heart failure 12/08/2017 Hyperlipidemia 12/08/2017 Localized edema 12/08/2017 Type 2 diabetes mellitus without complication Body mass index 40+ - severely obese 06/02/2017 Atrial fibrillation 06/02/2017 Disease type AND/OR category unknown 08/13/2016 Overview (12/30/2018): Morbid obesity with BMI of 45.0-49.9, adult Cardiomyopathy 04/11/2015 Overview (12/30/2018): Nonischemic cardiomyopathy Benign hypertension 04/11/2015 Overview (08/17/2019): Essential hypertension Hypervolemia 04/11/2015 Overview (12/30/2018): Hypervolemia, unspecified hypervolemia type Morbid obesity 04/11/2015 Overview (12/30/2018): Morbid obesity with body mass index of 40.0-44.9 in adult Obstructive sleep apnea syndrome 04/11/2015 Overview (12/30/2018): Obstructive sleep apnea Aortic valve disorder 03/30/2014 Overview (12/30/2018): Aortic valve disorder Congestive heart failure 03/30/2014 Overview (12/30/2018): Congestive heart failure Immunizations Name Administration Dates Next Due Influenza, Injectable, Quadrivalent 03/22/2019 Pneumococcal Polysaccharide 02/21/2011 TD Preservative Free 09/28/2002 Tdap 03/31/2014 Zoster 03/03/2011 Family History Medical History Relation Comments COPD Father Coronary arteriosclerosis Father Colon cancer Mother Diabetes mellitus Mother Relation Status Comments Father Mother Social History Tobacco Use Types Packs/Day Years Used Date Smoking Tobacco: Never Smokeless Tobacco: Never Alcohol Use Standard Drinks/Week Comments Yes 0 (1 standard drink = 0.6 oz pur e alcohol) Sex and Gender Information Value Date Recorded Sex Assigned at Not on file Gender Identity Not on file Sexual Orientation Not on file Last Filed Vital Signs Vital Sign Reading Time Taken Comments Blood Pressure 120/70 08/17/2019 9:29 AM BLAST FURNACE AUXILIARIES SUPERVISOR Pulse - - Temperature 36.5 C (97.7 F) 08/17/2019 9:29 AM BLAST FURNACE AUXILIARIES SUPERVISOR Respiratory Rate 18 08/17/2019 9:29 AM BLAST FURNACE AUXILIARIES SUPERVISOR Oxygen Saturation - - Inhaled Oxygen Concentration - - Weight 136 kg (299 lb) 08/17/2019 9:29 AM BLAST FURNACE AUXILIARIES SUPERVISOR Height 172.7 cm (5' 8 ) 08/17/2019 9:29 AM BLAST FURNACE AUXILIARIES SUPERVISOR Body Mass Index 45.46 08/17/2019 9:29 AM BLAST FURNACE AUXILIARIES SUPERVISOR Plan of Treatment Health Maintenance Due Date Last Done Comments Pneumococcal PPSV23/PCV13 65 + Years / Low and Medium Risk (2 of 3 - PCV) 02/22/2012 02/21/2011 Influenza Vaccine (#1) 2024 Care Teams Mechatronics Technician Relationship Specialty Start Date End Date Laquita Velásquez MD [address] [place] [address] PCP - General Internal Medicine 11/30/18
[2024-08-17 10:30] LABS: Basophils Percent Auto 0.4 % (0.2-1.2); Eosinophils Absolute Auto 0.1 K/mm3 (0-0.3); Eosinophils Percent Auto 0.9 % (0-4.4); Hematocrit 48.4 % (42.0-52.0); Hemoglobin 15.8 g/dL (14.0-18.0); Immature Granulocyte Absolute 0.03 K/mm3 (0.00-0.031); Immature Granulocyte Percent A 0.4 % (0-0.5); Lymphocytes Absolute Auto 2.39 K/mm3 (0.9-3.2); Lymphocytes Percent Auto 30.2 % (18.3-44.2); Mean Corpuscular HGB Conc 32.6 g/dl (32-36); Mean Platelet Volume 11.5 fl (7.4-10.4); Monocytes Absolute Auto 0.9 K/mm3 (0.1-0.6); Monocytes Percent Auto 10.7 % (2.6-8.5); Neutrophils Absolute Auto 4.5 K/mm3 (1.3-6.7); Neutrophils Percent Auto 57.4 % (45.5-73.1); Platelet Count Result 177 k/mm3 (150-375); Red Blood Count 4.79 M/mm3 (4.6-6.20); Red Cell Distribution Width 15.8 % (11.5-14.5); White Blood Count 7.9 K/mm3 (4.5-10.0)
[2024-08-17 10:32] LABS: Alanine Aminotransferase 14 U/L (6-50); Albumin Level 3.9 g/dL (3.5-5.1); Alkaline Phosphatase 65 U/L (38-126); Anion Gap 8 mmol/L (4-12); Aspartate Amino Transferase 20 U/L (17-59); Bilirubin,Total 0.8 mg/dL (0.2-1.3); Blood Urea Nitrogen 21 mg/dL (9-20); Calcium 9.4 mg/dL (8.4-10.2); Carbon Dioxide 28 mmol/L (22-30); Chloride 106 mmol/L (98-107); Cholesterol 129 mg/dL (0-200); Estimated Glomerular Filt Rate > 60; Glucose 112 mg/dL (65-110); HDL Direct 45 mg/dL; Magnesium 2.2 mg/dL (1.6-2.3); Potassium 4.4 mmol/L (3.4-5.0); Sodium 142 mmol/L (137-145); Triglycerides 71 mg/dL (<150)
[2024-08-17 10:43] LABS: LDL Cholesterol Direct 62 mg/dL
[2024-08-17 13:03] LABS: Hemoglobin A1C 6.4 % (<5.7)
[2024-08-17 20:47] LABS: Vitamin D 25 Hydroxy 65.1 ng/mL
[2024-08-17 21:17] LABS: Microalbumin Urine Random 158.5 mg/L (0-16.7)
[2024-08-17 21:19] LABS: MALB Creatinine Ratio 198.1 mg/g (0-30)
== END 2024-08-17 09:20 | disposition home or self-care (01) ==
PROVIDERS: PCP Family Medicine; Visit Provider Family Medicine
DX: E78.5 Hyperlipidemia, unspecified (principal); E11.9 Type 2 diabetes mellitus without complications; E55.9 Vitamin D deficiency, unspecified; I50.33 Acute on chronic diastolic (congestive) heart failure; I48.91 Unspecified atrial fibrillation; E53.8 Deficiency of other specified B group vitamins; R74.01 Elevation of levels of liver transaminase levels
CPT/HCPCS: 36415; 80053; 80061; 82043; 82306; 82607; 83036; 83735; 84443; 85025

== ENCOUNTER 2025-02-14 11:21 | Outpatient (CLI) | payer MEDICARE, SELFPAY ==
--- OUTSIDE RECORDS SUMMARY | 2025-02-14 11:48 | XMS_ITS | Encounter Summary ---
Author Organization [facility] Address [address] [place] [address] Care Team Providers Care Drier Tender Naphthalene Name Role Phone Garfield Donis MD Primary Care Provider [phone]- [phone] Garfield Donis MD Primary Care Provider [phone]- [phone] Laquita Edmondson MD Primary Care Provider [phone]- [phone] Artemio Hull MD Primary Care Provider Encounter Details Date Type Department Care Team (Late st Contact Info) Description 08/25/2016 Orders Only [facility] ProviderSarkis MD [address] [place] [address] Social History Tobacco Use Types Packs/Day Years Used Date Smoking Tobacco: Never Alcohol Use Standard Drinks/Week Comments Yes 0 (1 standard drink = 0.6 oz pur e alcohol) Sex and Gender Information Value Date Recorded Sex Assigned at Not on file Legal Sex Male 2:33 PM DRIVERS' CASH CLERK Gender Identity Not on file Sexual Orientation [...] on filedocumented in this encounter Care Teams Drier Tender Naphthalene Relationship Specialty Start Date End Date Garfield Donis MD [address] [place] [address] PCP - General 09/19/16 12/31/17 Garfield Donis MD [address] [place] [address] PCP - General 03/30/14 09/18/16 Laquita Edmondson MD [address] [place] [place] [address] PCP - General Family Practice 01/01/18 10/23/20 Artemio Hull MD [address] [place] [place] [address] PCP - General Family Practice 10/24/20 documented as of this encounter
--- OUTSIDE RECORDS SUMMARY | 2025-02-14 11:48 | XMS_ITS | Encounter Summary ---
Author Organization [facility] Address [address] [place] [address] Care Team Providers Care Benefits Technician Name Role Phone Artemio Hull MD Primary Care Provider Encounter Details Date Type Department Care Team (Latest Contact Info) Description 01/30/2025 Results Follow-Up [facility] Cardiology at [address] [place] [address] [place] [address] [place] [address] [address] [place] [address] Transthoracic Echo (TTE) Complete W Doppler/CF Social History Tobacco Use Types Packs/Day Years Used Date Smoking Tobacco: Never Smokeless Tobacco: Never Alcohol Use Standard Drinks/Week Comments Yes 1 (1 standard drink = 0.6 oz pur e alcohol) occassionally Sex and Gender Information Value Date Recorded Sex Assigned at Not on file Legal Sex Male 2:33 PM APPEALS SPECIALIST Gender Identity Not on file Sexual Orientation Not on file documented as of this encounter Plan of Treatment Not on file documented as of this encounter Visit Diagnoses Not on filedocumented in this encounter Care Teams Benefits Technician Relationship Specialty Start Date End Date Artemio Hull MD PCP - General Family Practice 10/24/20 documented as of this encounter
--- OUTSIDE RECORDS SUMMARY | 2025-02-14 11:48 | XMS_ITS | Clinical Summary ---
Author Organization [facility] Address [address] [place] [address] Phone Care Team Providers Care Multiple Knife Edge Trimmer Operator Name Role Phone Laquita Velásquez MD Primary Care Provider [phone] Allergies No known active allergies Medications apixaban (ELIQUIS) 5 MG tablet Take 5 mg by mouth 2 times daily Active carvedilol (COREG) 25 MG tablet Take 1 tab po in the morning and 1/2 tab po in the evening 9 Active insulin NPH-insulin regular (HUMULIN 70/30) (70-30) 100 UNIT/ML injection inject by subcutaneous route as per insulin protocol 3 Active NIFEdipine CC (AFEDITAB CR) 30 MG 24 hr tablet TAKE ONE TABLET BY MOUTH ONCE DAILY DIRECTED 8 Active valsartan (DIOVAN) 320 MG tablet Take 320 mg by mouth 1 (one) time each day Active ACCU-CHEK GOLDEN PLUS test strip 0 Active ACCU-CHEK SOFTCLIX LANCETS lancets 0 Active potassium chloride (KLOR-CON) 10 MEQ CR tablet 0 Active furosemide (LASIX) 40 MG tablet 0 Active Active Problems Problem Noted Date Diagnosed [...] 03/30/2014 Overview (12/30/2018): Congestive heart failure Immunizations Immunization Administration Dates Next Due Influenza, Injectable, Quadrivalent [...] at Not on file Legal Sex Male 9:00 AM MDT Gender Identity Not on file Sexual Orientation Not on file Last Filed Vital Signs Vital Sign Reading Time Taken Comments Blood Pressure 120/70 08/17/2019 9:29 AM PEST CONTROL TECHNICIAN Pulse - - Temperature 36.5 C (97.7 F) 08/17/2019 9:29 AM PEST CONTROL TECHNICIAN Respiratory Rate 18 08/17/2019 9:29 AM PEST CONTROL TECHNICIAN Oxygen Saturation - - Inhaled Oxygen Concentration - - Weight 136 kg (299 lb) 08/17/2019 9:29 AM PEST CONTROL TECHNICIAN Height 172.7 cm (5' 8) 08/17/2019 9:29 AM PEST CONTROL TECHNICIAN Body Mass Index 45.46 08/17/2019 9:29 AM PEST CONTROL TECHNICIAN Plan of Treatment Health Maintenance Due Date Last Done Comments Pneumococcal PPSV23/PCV13 65 + Years / Low and Medium Risk (2 of 3 - PCV) 02/22/2012 02/21/2011 Influenza Vaccine (#1) 2025 Insurance [employer] MEDICARE Care Teams Multiple Knife Edge Trimmer Operator Relationship Specialty Start Date End Date Laquita Velásquez MD [address] [facility] [facility] [address] [place] [address] PCP - General Internal Medicine 11/30/18
--- OUTSIDE RECORDS SUMMARY | 2025-02-14 11:48 | XMS_ITS | Clinical Summary ---
Author Organization [facility] [address] [facility] [address] Address [address] [place] [address] Care Team Providers Care Crm Marketing Analyst Name Role Phone Artemio Hull MD Primary Care Provider Allergies No known active allergies Medications insulin NPH-insulin regular (HumuLIN 70/30) 100 unit/mL (70-30) injection inject by subcutaneous route as per insulin protocol 0 3 Active apixaban (ELIQUIS) 5 mg tablet Take 1 tablet (5 mg total) by mouth 2 (two) times a day Active furosemide (LASIX) 40 mg tabletIndicatio ns:Chronic combined systolic and diastolic congestive heart failure (HCC) Take 1 tablet (40 mg total) [...] (290 mcg total) daily as needed Active Jardiance 10 mg tablet TAKE 1 TABLET BY MOUTH DAILY 90 tablet 3 4 Active insulin aspart protamine-insul in aspart 70/30 (NovoLOG 70/30) 100 unit/mL pen for injection Inject under the skin Active sacubitriL-vals dony (ENTRESTO) 24-26 mg tabletIndicatio ns:chronic heart failure Take 1 tablet by mouth 2 (two) times a day 180 tablet 3 5 Active carvediloL (COREG) 12.5 mg tablet TAKE 1 TABLET BY MOUTH TWICE A DAY WITH MEALS/FOOD 180 tablet 2 5 Active Active Problems Problem Noted Date Diagnosed Date Chronic combined systolic and diastolic heart fa ilure 06/11/2021 Thromboembolism 10/13/2019 Nonrheumatic aortic valve insufficiency [...] Overview (09/26/2016): Essential hypertension Congestive heart failure 03/30/2014 Overview (09/26/2016): Congestive heart failure Aortic valve disease 03/30/2014 Overview (09/26/2016): Aortic valve disorder Encounters Date Type Department Care Team Description 01/30/2025 Results Follow-Up [facility] Medical Group Cardiology at [address] [place] [address] Deyvi Reed MD Transthoracic Echo (TTE) Complete W Doppler/CF 01/26/2025 9:15 AM CDT Ancillary Procedure [facility] Medical [facility] Cardiology [address] [place] [phone] Chronic combined systolic and diastolic heart failure (HCC); Aortic valve disease 01/23/2025 9:30 AM CDT Office Visit [facility] Cardiology [address] [place] [phone] Deyvi Reed MD Chronic combined systolic and diastolic heart failure (HCC) (Primary Dx); Aortic valve disease; Morbid obesity with BMI of 40.0-44.9, adult (HCC); Pulmonary hypertension (HCC); Essential hypertension; Chronic atrial fibrillation (HCC) from Last 3 Months Medical History Medical History Date Comments Hx Other Medical Sleep Apnea, CP AP Hx Other Medical Diabetes Type I I Osteoarthritis Osteoarthritis Atrial fibrillation (HCC) CHF (congestive heart failure) (HCC) Diastolic dysfunction Pulmonary embolism 04/2019 DVT (deep venous thrombosis) 04/2019 Pulmonary hypertension (HCC) Sleep apnea Prostate cancer (HCC) Diabetes mellitus (HCC) Family History Medical History Relation Name Comments Other Maternal Grandmother Valve r eplacement; Diabetes Mother Sneha Neri Relation Name Status Comments Maternal Grandmother Mother Sneha Neri Alive Social History Tobacco Use Types Packs/Day Years Used Date Smoking Tobacco: Never Smokeless Tobacco: Never Tobacco Cessation:Counseling Given: Not Answered Alcohol Use Standard Drinks/Week Comments Yes 1 (1 standard drink = 0.6 oz pur e alcohol) occassionally Sex and Gender Information Value Date Recorded Sex Assigned at Not on file Legal Sex Male 2:33 PM RUBY ON RAILS WEB DEVELOPER Gender Identity Not on file Sexual Orientation Not on file Obstetrics History Last Filed Vital Signs Vital Sign Reading Time Taken Comments Blood Pressure 110/60 01/23/2025 9:27 AM CDT Pulse 88 01/23/2025 9:27 AM CDT Temperature 36.3 C (97.3 F) 06/05/2020 8:20 AM RUBY ON RAILS WEB DEVELOPER Respiratory Rate - - Oxygen Saturation 97% 01/23/2025 9:27 AM CDT Inhaled Oxygen Concentration - - Weight 131.1 kg (289 lb) 01/23/2025 9:27 AM CDT Height 177.8 cm (5' 10) 01/23/2025 9:27 AM CDT Body Mass Index 41.47 01/23/2025 9:27 AM CDT Plan of Treatment Health Maintenance Due Date Last Done Comments Depression Screening 1945 Fall Risk Assessment 1945 Hepatitis B Screening 12/11/1961 Well Visit 65+ 12/11/2008 Zoster Vaccine (2 of 3) 04/28/2011 03/03/2011 Pneumococcal vaccine 65+ (2 of 2 - PCV) 02/22/2012 0 02/21/2011 DTaP/Tdap/Td Vaccine (2 - Td or Tdap) 03/31/202403/2014, 09/28/2002 Influenza Vaccine (#1) 2025 03/22/2019 Procedures Procedure Name Priority Date/Time Associated Diagnosis Comments TRANSTHORACIC ECHO (TTE) COMPLETE W DOPPLER/CF WO CONTRAST Routine 01/26/2025 10:17 AM CDT Chronic combined systolic and diastolic heart failure (HCC) Aortic valve disease from Last 3 Months Results * TRANSTHORACIC ECHO (TTE) COMPLETE W DOPPLER/CF WO CONTRAST (01/26/2025 10:17 AM CDT) Estimated EF 45 % CONS SCIMAGE EF Mod BP 37 % CONS SCIMAGE Anatomical Region Laterality Modality Ultrasound 01/26/2025 9:19 AM CDT Narrative 01/26/2025 12:45 PM CDT [facility] Medical Group Cardiology [address] [facility] [address], [place] [address] [address] [facility] [address], [place] [address] P:[phone] P:[phone] Echocardiographic Report Patient Name: SERG NERI : 1945 Study Date: 01/26/2025 9:19:41 AM Gender: M Knockup Worker: Flora Padilla)(CT), [facility] Location: [place] Ref Provider: DEYVI REED Height(Cm): 178 BSA: 2.55 Weight(Kg): 131.1 Heart Rate: 83 BP: 110 / 60 Quality: Good Order Provider: DEYVI REED PROCEDURES: Echocardiographic Report: Transthoracic echocardiogram with complete 2D, M-Mode, and color Doppler examination. With Strain Analysis. INDICATIONS: I50.42 Chronic combined systolic (congestive) and diastolic (congestive) heart failure and I35.9 Nonrheumatic aortic valve disorder, unspecified. MEASUREMENTS: 2D/MM Value Range Doppler Value Range EF Mod BP 37 % [ 52 - 72 ] LENNY Vmax 1.85 cm2 [ 2.00 - 4.00 ] Estimated EF 45 % AV Mean PG 8 mmHg LV GLS -8.42 % AV Peak Aaron 1.78 m/s [ 1.00 - 1.70 ] LVIDd 2D 5.34 cm [ 4.20 - 5.80 ] AV Peak PG 13 mmHg LVIDs 2D 4.41 cm [ 2.50 - 4.00 ] AV VTI 34.84 cm LVPWd 2D 1.10 cm [ 0.60 - 1.00 ] LVOT Diam 2.16 cm [ 1.70 - 2.10 ] IVSd 2D 1.10 cm [ 0.60 - 1.00 ] LVOT Peak Aaron 0.90 m/s [ 0.70 - 1.10 ] AoR Diam 2D 3.25 cm [ 3.10 - 3.70 ] LVOT VTI 21.70 cm LA Volume 84.45 ml [ 18.00 - 58.00 ] PV Peak Aaron 0.73 m/s [ 0.40 - 0.80 ] LA Volume Index 33 cc/m2 [ 16 - 28 ] RV S` 9.73 mmHg RA Volume 78.65 ml Tapse 2.49 cm [ 1.71 - 5.00 ] 2D/MM Value Range Doppler Value Range - FINDINGS: Interpretation Site: Exam was interpreted at [facility]. Left Ventricle: Mild concentric left ventricular hypertrophy. Mild enlargement of left ventricle cavity. Mild global left ventricular systolic dysfunction. Diastolic dysfunction is present. Ejection Fraction is visually estimated to be 45 %. Global Longitudinal Strain is -8 %. GLS is abnormal. Right Ventricle: Normal right ventricular size. Normal right ventricular systolic function. Left Atrium: There is severe enlargement of left atrium. Right Atrium: The right atrium is normal in size. Atrial Septum: Normal atrial septum. Mitral Valve: Mitral valve leaflets appear mildly thickened. Moderate mitral annular calcification. Mild mitral valve regurgitation. There is no hemodynamically significant mitral stenosis by Doppler. Aortic Valve: Mild aortic stenosis. Mean gradient of 8.0 mmHg. Valve area of 1.9 cm2. Aortic cusps appear mildly calcified. Trileaflet aortic valve. Mild to moderate aortic valve regurgitation. Tricuspid Valve: Normal appearance of the tricuspid valve. Normal right ventricular systolic pressure. Estimated peak RVSP is 20-25 mmHg. Mild tricuspid regurgitation. Pulmonic Valve: Normal appearance of the pulmonic valve. No pulmonic stenosis. Trivial regurgitation in the pulmonic valve. Pericardium: Small pericardial effusion. Aorta: There is mild atherosclerosis in the aortic root. IVC: Normal size and normal respiratory collapse consistent with normal right atrial pressure (<5 mmHg). CONCLUSIONS: Mild concentric left ventricular hypertrophy. Mild enlargement of left ventricle cavity. Mild global left ventricular systolic dysfunction. Diastolic dysfunction is present. Ejection Fraction is visually estimated to be 45 %. Global Longitudinal Strain is -8 %. GLS is abnormal. There is severe enlargement of left atrium. Mitral valve leaflets appear mildly thickened. Moderate mitral annular calcification. Mild mitral valve regurgitation. Mild aortic stenosis. Mean gradient of 8.0 mmHg. Valve area of 1.9 cm2. Aortic cusps appear mildly calcified. Trileaflet aortic valve. Mild to moderate aortic valve regurgitation. Mild tricuspid regurgitation. Atrial fibrillation. Electronically Signed By: Deyvi Reed MD 01/26/2025 12:44:43 PM CDT Procedure Note Deyvi Reed MD - 01/26/2025 [facility] Medical Group Cardiology [address] [facility] [address], [place] [address] [address] [facility] [address], [place] [address] P:[phone] P:[phone] Echocardiographic Report Patient Name: SERG NERI : 1945 Study Date: 01/26/2025 9:19:41 AM Gender: M Knockup Worker: Flora Padilla)(CT), [facility] Location: [facility] Provider: DEYVI REED Height(Cm): 178 BSA: 2.55 Weight(Kg): 131.1 Heart Rate: 83 BP: 110 / 60 Quality: Good Order Provider: DEYVI REED PROCEDURES: Echocardiographic Report: Transthoracic echocardiogram with complete 2D, M-Mode, and color Dopplerexamination. With Strain Analysis. INDICATIONS: I50.42 Chronic combined systolic (congestive) and diastolic (congestive)heart failure and I35.9 Nonrheumatic aortic valve disorder, unspecified. MEASUREMENTS: 2D/MM Value Range Doppler ValueRange EF Mod BP 37 % [ 52 - 72 ] LENNY Vmax 1.85cm2 [ 2.00 - 4.00 ] Estimated EF 45 % AV Mean PG 8mmHg LV GLS -8.42 % AV Peak Aaron 1.78m/s [ 1.00 - 1.70 ] LVIDd 2D 5.34 cm [ 4.20 - 5.80 ] AV Peak PG 13mmHg LVIDs 2D 4.41 cm [ 2.50 - 4.00 ] AV VTI 34.84cm LVPWd 2D 1.10 cm [ 0.60 - 1.00 ] LVOT Diam 2.16cm [ 1.70 - 2.10 ] IVSd 2D 1.10 cm [ 0.60 - 1.00 ] LVOT Peak Aaron 0.90m/s [ 0.70 - 1.10 ] AoR Diam 2D 3.25 cm [ 3.10 - 3.70 ] LVOT VTI 21.70cm LA Volume 84.45 ml [ 18.00 - 58.00 ] PV Peak Aaron 0.73m/s [ 0.40 - 0.80 ] LA Volume Index 33 cc/m2 [ 16 - 28 ] RV S` 9.73mmHg RA Volume 78.65 ml Tapse 2.49cm [ 1.71 - 5.00 ] 2D/MM Value Range Doppler ValueRange - FINDINGS: Interpretation Site: Exam was interpreted at [facility]. Left Ventricle: Mild concentric left ventricular hypertrophy. Mild enlargement of leftventricle cavity. Mild global left ventricular systolic dysfunction. Diastolic dysfunctionis present. Ejection Fraction is visually estimated to be 45 %. Global LongitudinalStrain is -8 %. GLS is abnormal. Right Ventricle: Normal right ventricular size. Normal right ventricular systolicfunction. Left Atrium: There is severe enlargement of left atrium. Right Atrium: The right atrium is normal in size. Atrial Septum: Normal atrial septum. Mitral Valve: Mitral valve leaflets appear mildly thickened. Moderate mitral annularcalcification. Mild mitral valve regurgitation. There is no hemodynamically significantmitral stenosis by Doppler. Aortic Valve: Mild aortic stenosis. Mean gradient of 8.0 mmHg. Valve area of 1.9 cm2.Aortic cusps appear mildly calcified. Trileaflet aortic valve. Mild to moderate aorticvalve regurgitation. Tricuspid Valve: Normal appearance of the tricuspid valve. Normal right ventricularsystolic pressure. Estimated peak RVSP is 20-25 mmHg. Mild tricuspid regurgitation. Pulmonic Valve: Normal appearance of the pulmonic valve. No pulmonic stenosis. Trivialregurgitation in the pulmonic valve. Pericardium: Small pericardial effusion. Aorta: There is mild atherosclerosis in the aortic root. IVC: Normal size and normal respiratory collapse consistent with normal rightatrial pressure (<5 mmHg). CONCLUSIONS: Mild concentric left ventricular hypertrophy. Mild enlargement of leftventricle cavity. Mild global left ventricular systolic dysfunction. Diastolic dysfunctionis present. Ejection Fraction is visually estimated to be 45 %. Global LongitudinalStrain is -8 %. GLS is abnormal. There is severe enlargement of left atrium. Mitral valve leaflets appear mildly thickened. Moderate mitral annularcalcification. Mild mitral valve regurgitation. Mild aortic stenosis. Mean gradient of 8.0 mmHg. Valve area of 1.9 cm2.Aortic cusps appear mildly calcified. Trileaflet aortic valve. Mild to moderate aorticvalve regurgitation. Mild tricuspid regurgitation. Atrial fibrillation. Electronically Signed By: Deyvi Reed MD 01/26/2025 12:44:43 PM CDT Deyvi Reed MD CV ECHO PROCEDURES Final Result from Last 3 Months Insurance [employer] MEDICARE ADVANTAGE Care Teams Crm Marketing Analyst Relationship Specialty Start Date End Date Artemio Hull MD PCP - General Family Practice 10/24/20
--- OUTSIDE RECORDS SUMMARY | 2025-02-14 11:48 | XMS_ITS | Encounter Summary ---
Author Organization [facility] Healthcare Address [address] [place] [address] Care Team Providers Care Service Consultant Name Role Phone Artemio Hull MD Primary Care Provider Encounter Details Date Type Department Care Team (Late st Contact Info) Description 08/17/2024 Orders Only [facility] Health Information Management [address] [place] [address] Scanning, Provider Social History Tobacco Use Types Packs/Day Years Used Date Smoking Tobacco: Never Smokeless Tobacco: Never Alcohol Use Standard Drinks/Week Comments Yes 1 (1 standard drink = 0.6 oz pur e alcohol) occassionally Sex and Gender Information Value Date Recorded Sex Assigned at Not on file Legal Sex 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
[2025-02-14 14:51] LABS: Alanine Aminotransferase 13 U/L (6-50); Albumin Level 3.9 g/dL (3.5-5.1); Alkaline Phosphatase 58 U/L (38-126); Anion Gap 6 mmol/L (4-12); Aspartate Amino Transferase 66 U/L (17-59); Bilirubin,Total 0.8 mg/dL (0.2-1.3); Blood Urea Nitrogen 20 mg/dL (9-20); Calcium 9.8 mg/dL (8.4-10.2); Carbon Dioxide 29 mmol/L (22-30); Chloride 105 mmol/L (98-107); Estimated Glomerular Filt Rate > 60; Glucose 191 mg/dL (65-110); Potassium 5.2 mmol/L (3.4-5.0); Sodium 140 mmol/L (137-145); Total Protein 7.7 g/dL (6.3-8.2)
[2025-02-14 15:20] LABS: Hemoglobin A1C 6.4 % (<5.7)
== END 2025-02-14 11:22 | disposition home or self-care (01) ==
LOC: ANHGOSHLAB 11:22
PROVIDERS: PCP Family Medicine; Visit Provider Family Medicine
DX: E11.9 Type 2 diabetes mellitus without complications (principal); I10 Essential (primary) hypertension
CPT/HCPCS: 36415; 80053; 83036

== ENCOUNTER 2025-02-24 10:24 | Outpatient (CLI) | payer MEDICARE, SELFPAY ==
--- OUTSIDE RECORDS SUMMARY | 2025-02-24 10:43 | XMS_ITS | Clinical Summary ---
Author Organization [facility] [address] [facility] 162 Address [address] [place] [address] Care Team Providers Care Film And Video Graphics Designer Name Role Phone Artemio Hull MD Primary [...] Department Care Team Description 01/30/2025 Results Follow-Up [facility] Medical Group Cardiology at [address] [place] [address] Deyvi Reed MD Transthoracic Echo (TTE) Complete W Doppler/CF 01/26/2025 9:15 AM CDT Ancillary Procedure [facility] Medical [facility] Cardiology [address] [place] [phone] Chronic combined systolic and diastolic heart failure (HCC); Aortic valve disease 01/23/2025 9:30 AM CDT Office Visit [facility] Cardiology [address] [place] [phone] Deyvi Reed MD Chronic combined systolic and [...] on file 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 Gender Identity Not on file Sexual Orientation Not on file Obstetrics History Last Filed Vital Signs Vital Sign Reading Time Taken Comments Blood Pressure 110/60 01/23/2025 9:27 AM CDT Pulse 88 01/23/2025 9:27 AM CDT Temperature 36.3 C (97.3 F) 06/05/2020 8:20 AM ELECTRICAL SUPERINTENDENT Respiratory Rate - - Oxygen Saturation 97% [...] AM CDT Narrative 01/26/2025 12:45 PM CDT [facility] Medical Group Cardiology [address] [facility] [address] [address] [address] [facility] [address], [place] [address] P:[phone] P:[phone] Echocardiographic Report Patient Name: SERG NERI : 1945 Study Date: 01/26/2025 9:19:41 AM Gender: M Operating Room Scheduler: Flora Padilla)(CT), [facility] Location: [place] Ref Provider: DEYVI REED Height(Cm): 178 BSA: [...] Site: Exam was interpreted at [facility]. Left Ventricle: Mild concentric left ventricular hypertrophy. [...] Procedure Note Deyvi Reed MD - 01/26/2025 [facility] Medical Group Cardiology [address] [facility] [address], [place] [address] [address] [facility] [address], [place] [address] P:[phone] P:[phone] Echocardiographic Report Patient Name: SERG NERI : 1945 Study Date: 01/26/2025 9:19:41 AM Gender: M Operating Room Scheduler: Flora Padilla)(CT), [facility] Location: [facility] Provider: DEYVI REED Height(Cm): 178 BSA: 2.55 [...] Site: Exam was interpreted at [facility]. Left Ventricle: Mild concentric left ventricular hypertrophy. [...] Months Insurance [employer] MEDICARE ADVANTAGE Care Teams Film And Video Graphics Designer Relationship Specialty Start Date End Date Artemio Hull MD PCP - General Family Practice 10/24/20
--- OUTSIDE RECORDS SUMMARY | 2025-02-24 10:43 | XMS_ITS | Encounter Summary ---
Author Organization [facility] Healthcare Address [address] [place] [address] Care Team Providers Care Claims Attorney Name Role Phone Artemio Hull MD Primary Care Provider Encounter Details Date Type Department Care Team (Late st Contact Info) Description 08/17/2024 Orders Only [facility] Health Information Management [address] [place] [address] Scanning, Provider Social History Tobacco Use Types Packs/Day Years Used Date Smoking Tobacco: Never Smokeless Tobacco: Never Alcohol Use Standard Drinks/Week Comments Yes 1 (1 standard drink = 0.6 oz pur e alcohol) occassionally Sex and Gender Information Value Date Recorded Sex Assigned at Not on file 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
--- OUTSIDE RECORDS SUMMARY | 2025-02-24 10:43 | XMS_ITS | Encounter Summary ---
Author Organization [facility] Medical Group Address [address] [facility] [address] [place] [address] Care Team Providers Care Store Promoter Name Role Phone Garfield Donis MD Primary Care Provider [phone]- [phone] Garfield Donis MD Primary Care Provider [phone]- [phone] Laquita Edmondson MD Primary Care Provider [phone]- [phone] Artemio Hull MD Primary Care Provider Encounter Details Date Type Department Care Team (Late st Contact Info) Description 08/25/2016 Orders Only [facility] ProviderSarkis MD [address] [place] [id number] Social History Tobacco Use Types Packs/Day Years Used Date Smoking Tobacco: Never Alcohol Use Standard Drinks/Week Comments Yes 0 (1 standard drink = 0.6 oz pur e alcohol) Sex and Gender Information Value Date Recorded Sex Assigned at Not on file 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
--- OUTSIDE RECORDS SUMMARY | 2025-02-24 10:43 | XMS_ITS | Clinical Summary ---
Author Organization [facility] Address [address] [place] [address] Care Team Providers Care Garment Steamer Name Role Phone Artemio Hull MD Primary Care Provider Allergies No known active allergies Medications carvedilol (COREG) 25 MG tablet Take 1 tablet (25 mg total) by mouth 2 (two) times daily. Active apixaban (ELIQUIS) 5 MG tablet Take 1 tablet (5 mg total) by mouth 2 (two) times daily. Active sacubitril-tex sartan (ENTRESTO) 49-51 MG tablet Take 1 tablet by mouth 2 (two) times daily. Active furosemide (LASIX) 40 MG tablet Take 1 tablet (40 mg total) by mouth daily. Active empagliflozin (JARDIANCE) 10 MG tablet Take 1 tablet (10 mg total) by mouth daily. Active valsartan (DIOVAN) 320 MG tablet Take 1 tablet (320 mg total) by mouth. Active linaCLOtide (LINZESS) 290 MCG capsule 1 capsule (290 mcg total). Active SOFTCLIX LANCETS Misc USE TO CHECK BLOOD SUGAR 2 TO 3 TIMES DAILY FOR FLUCTUATING BLOOD SUGARS 3 Active potassium chloride CR (K-TAB) 10 MEQ Tab CR tablet Take 1 tablet (10 mEq total) by mouth daily. 3 Active Cholecalcifero l (VITAMIN D3) 25 MCG (1000 UT) Cap Take 2,000 Units by mouth daily. Active vitamin D2, ergocalciferol , (DRISDOL) 1.25 mg capsule 3 Active insulin aspart protamine-aspa rt (NOVOLOG 70/30) (70-30) 100 UNIT/ML injection (PEN) Inject into the skin see administration instructions. Active Active Problems Problem Noted Date Diagnosed Date Positive colorectal cancer screening using Colog uard test 05/05/2023 Social History Tobacco Use Types Packs/Day Years Used Date Smoking Tobacco: Never Smokeless Tobacco: Never PHQ-2 Answer Date Recorded Patient Health Questionnaire-2 Score 0 04/24/2023 Sex and Gender Information Value Date Recorded Sex Assigned at Not on file Legal Sex Male 11:58 AM CDT Gender Identity Not on file Sexual Orientation Not on file Last Filed Vital Signs Vital Sign Reading Time Taken Comments Blood Pressure 97/61 06/01/2023 11:55 AM PUBLISHING DIRECTOR Pulse 109 06/01/2023 11:41 AM PUBLISHING DIRECTOR Temperature 36.1 C (96.9 F) 06/01/2023 9:26 AM PUBLISHING DIRECTOR Respiratory Rate 18 06/01/2023 11:41 AM PUBLISHING DIRECTOR Oxygen Saturation 95% 06/01/2023 11:56 AM PUBLISHING DIRECTOR Inhaled Oxygen Concentration - - Weight 126.1 kg (278 lb) 05/25/2023 4:07 PM PUBLISHING DIRECTOR Height 177.8 cm (5' 10) 05/25/2023 4:07 PM PUBLISHING DIRECTOR Body Mass Index 39.89 05/25/2023 4:07 PM PUBLISHING DIRECTOR Plan of Treatment Health Maintenance Due Date Last Done Comments Meningococcal Vaccine (1 - Risk 2-dose series) 12/11/1945 Meningococcal B Vaccine (1 of 5 - Increased Risk) 12/11/1953 RSV Immunization or 60+ Years (1 - 1-dose 75+ series) 12/11/2018 COVID-19 Vaccine ( - season) 2024 04/01/2022, 07/30/2021, 10/03/2020, Additional history exists DTaP, Tdap and Td Vaccines (2 - Td or Tdap) 03/31/2024 03/31/2014, 09/28/2002 PHQ-2 (Physician [place]) 06/22/2024 04/24/2023 Pneumococcal Vaccine: 50+ Years Completed 07/12/2020, 02/21/2011 Zoster Vaccines Completed 01/13/2023, 07/24, 03/03/2011 RSV Immunizations Under 20 Months Aged Out No longer eligible based on patient's age to complete this topic Insurance [facility] Care Teams Garment Steamer Relationship Specialty Start Date End Date Artemio Hull MD [address] [facility] [address] [place] [address] PCP - General FAMILY PRACTICE 04/24/23
--- OUTSIDE RECORDS SUMMARY | 2025-02-24 10:43 | XMS_ITS | Encounter Summary ---
Author Organization [facility] Healthcare Address [address] [place] [address] Care Team Providers Care Speech Language Pathology Assistant Name Role Phone Artemio Hull MD Primary Care Provider Encounter Details Date Type Department Care Team (Latest Contact Info) Description 01/30/2025 Results Follow-Up [facility] Cardiology at [address] [place] [address] Jayson Hoang MD [address] [facility] [address] [place] [address] Transthoracic Echo (TTE) Complete W Doppler/CF Social History Tobacco Use Types Packs/Day Years Used Date Smoking Tobacco: Never Smokeless Tobacco: Never Alcohol Use Standard Drinks/Week Comments Yes 1 (1 standard drink = 0.6 oz pur e alcohol) occassionally Sex and Gender Information Value Date Recorded Sex Assigned at Not on file Legal Sex Male 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
[2025-02-24 12:18] LABS: Anion Gap 6 mmol/L (4-12); Blood Urea Nitrogen 18 mg/dL (9-20); Calcium 9.5 mg/dL (8.4-10.2); Carbon Dioxide 29 mmol/L (22-30); Chloride 104 mmol/L (98-107); Estimated Glomerular Filt Rate > 60; Glucose 127 mg/dL (65-110); Potassium 4.1 mmol/L (3.4-5.0); Sodium 139 mmol/L (137-145)
== END 2025-02-24 10:25 | disposition home or self-care (01) ==
LOC: ANHGOSHLAB 10:25
PROVIDERS: PCP Family Medicine; Visit Provider Family Medicine
DX: E87.5 Hyperkalemia (principal)
CPT/HCPCS: 36415; 80048